=== PATIENT | male | born 1955 | race Caucasian/White ===

== ENCOUNTER 2024-09-18 17:17 | Inpatient (IN) | payer MEDICARE, OTHER ==
[~2024-09-18] VITALS: Ht 170.2 cm; Wt 67.5 kg
[2024-09-18] MEDS ORDERED: 0.9% SODIUM CHLORIDE 10 ML SYRINGE IVP PRN (18:30)
[2024-09-18] MEDS: SODIUM CHLORIDE 0.9% 1,400 ML IV ONE (19:41)
[2024-09-18] MEDS: CefTRIAXone 1 GM/DEXTROSE 50 ML IV ONE (19:41)
[2024-09-18] MEDS: ACETAMINOPHEN 650 MG/ISO-OSM 65 ML IV ONE (19:42)
[2024-09-18] MEDS ORDERED: NOREPINEPHRINE 8 MG/0.9 % NACL 250 ML IV PRN (19:45)
[2024-09-18 19:49] LABS: APPEARANCE,URINE TURBID (CLEAR); BILIRUBIN,URINE NEGATIVE (NEGATIVE); COLOR,URINE ORANGE (YELLOW); GLUCOSE, URINE (UA) NEGATIVE (NEGATIVE); KETONES,URINE NEGATIVE (NEGATIVE); LEUKOCYTE ESTERASE ,URINE LARGE (NEGATIVE); NITRATE,URINE POSITIVE (NEGATIVE); OCCULT BLOOD,URINE LARGE (NEGATIVE); PROTEIN,URINE 100-200,SEE CONFIRM mg/dL (NEGATIVE); SPECIFIC GRAVITIY, URINE 1.019 (1.003-1.030); UROBILINOGEN,URINE <=1.0 mg/dL (<=1.0)
[2024-09-18 20:00] LABS: BACTERIA,URINE Moderate /HPF (None Seen); WBC,URINE Full Field /HPF (0-5)
[2024-09-18 20:06] LABS: SULFOSALICYLIC ACID,URINE 1+ (Negative)
[2024-09-18 20:26] LABS: BASOPHILS % (AUTO) 0.4 % (0.0-2.0); EOSINOPHILS % (AUTO) 1.3 % (1.0-6.0); HEMATOCRIT 23.6 % (41-53); HEMOGLOBIN 7.4 g/dL (13.5-17.5); LYMPHOCYTES # (AUTO) 0.4 K/uL (1.0-4.8); LYMPHOCYTES % (AUTO) 6.1 % (22.0-44.0); MEAN CORPUSCULAR HEMOGLOBIN 24.2 pg (26.0-34.0); MEAN CORPUSCULAR HGB CONC 31.2 G/dL (31.0-37.0); MEAN CORPUSCULAR VOLUME 78 fL (80-100); MONOCYTES # (AUTO) 0.3 K/uL (0.1-1.0); MONOCYTES % (AUTO) 5.6 % (2.0-9.0); NEUTROPHILS # (AUTO) 5.1 K/uL (1.8-7.7); PLATELET COUNT (AUTO) 406 K/uL (150-450); RED BLOOD CELL COUNT(AUTO) 3.03 MIL/uL (4.50-5.90); RED CELL DISTRIBUTION WIDTH 20.5 % (11.5-14.5); WHITE BLOOD COUNT (AUTO) 5.9 K/uL (4.5-11.0)
[2024-09-18 20:30] LABS: NEUTROPHILS % (AUTO) 86.6 % (40.0-70.0)
[2024-09-18 20:31] LABS: PROTHROMBIN TIME 11.1 SEC (9.4-11.6)
[2024-09-18 20:36] LABS: B-TYPE NATRIURETIC PEPTIDE 163 pg/mL (0-100)
[2024-09-18 20:37] LABS: ANION GAP 6 mmol/L (8-16); CARBON DIOXIDE 29 mmol/L (22-29); CHLORIDE 106 mmol/L (98-107); CREATININE 1.44 mg/dL (0.60-1.30); GLOMERULAR FILTR. RATE CALC 49 mL/min (>60); GLUCOSE,RANDOM 124 mg/dL (70-110); SODIUM SERUM 141 mmol/L (136-145); TROPONIN I-HIGH SENSITIVITY 50 ng/L (<76); UREA NITROGEN, BLOOD 29 mg/dL (7-18)
[2024-09-18 20:39] LABS: POTASSIUM 2.5 mmol/L (3.5-5.1)
[2024-09-18 20:53] LABS: RBC MORPHOLOGY COMMENT ABNORMAL RBC MORPH
[2024-09-18] MEDS: POTASSIUM CHL 10 MEQ/WATER 50 ML IV SCH (21:48)
[2024-09-19] VITALS (7 sets, daily range): BP systolic 98–125; BP diastolic 56–77; PULSE 71–84; RESP 11–17; TEMP 98.5–100.2; O2SAT 100
[2024-09-19] MEDS ORDERED: SODIUM CHLORIDE 0.9% 500 ML IV ONE (01:18)
[2024-09-19] MEDS: POTASSIUM CHL 10 MEQ/WATER 50 ML IV SCH ×3 (01:20→22:28)
[2024-09-19 07:39] LABS: BASOPHILS % (AUTO) 0.2 % (0.0-2.0); EOSINOPHILS % (AUTO) 5.1 % (1.0-6.0); HEMATOCRIT 22.1 % (41-53); LYMPHOCYTES # (AUTO) 0.3 K/uL (1.0-4.8); MEAN CORPUSCULAR HEMOGLOBIN 24.4 pg (26.0-34.0); MEAN CORPUSCULAR HGB CONC 31.5 G/dL (31.0-37.0); MEAN CORPUSCULAR VOLUME 78 fL (80-100); MONOCYTES # (AUTO) 0.3 K/uL (0.1-1.0); NEUTROPHILS # (AUTO) 5.7 K/uL (1.8-7.7); PLATELET COUNT (AUTO) 410 K/uL (150-450); RED BLOOD CELL COUNT(AUTO) 2.85 MIL/uL (4.50-5.90); RED CELL DISTRIBUTION WIDTH 20.6 % (11.5-14.5); WHITE BLOOD COUNT (AUTO) 6.7 K/uL (4.5-11.0)
[2024-09-19 07:45] LABS: ANION GAP 8 mmol/L (8-16); CARBON DIOXIDE 25 mmol/L (22-29); CHLORIDE 110 mmol/L (98-107); CREATININE 1.18 mg/dL (0.60-1.30); GLOMERULAR FILTR. RATE CALC > 60 mL/min (>60); GLUCOSE,RANDOM 116 mg/dL (70-110); POTASSIUM 3.3 mmol/L (3.5-5.1); SODIUM SERUM 142 mmol/L (136-145); UREA NITROGEN, BLOOD 27 mg/dL (7-18)
[2024-09-19 08:04] LABS: NEUTROPHILS % (AUTO) 85.7 % (40.0-70.0)
[2024-09-19 09:24] LABS: RBC MORPHOLOGY COMMENT ABNORMAL RBC MORPH
[2024-09-19] MEDS: ACETAMINOPHEN 650 MG RECTAL SUPPOSITORY PR PRN (12:34)
[2024-09-19] MEDS ORDERED: ACET-2247 PO (12:35)
[2024-09-19] MEDS ORDERED: BISA10SU11 PR (12:35)
[2024-09-19] MEDS ORDERED: ATOR40TA28 PO (12:35)
[2024-09-19] MEDS ORDERED: OXYC5 PO (12:35)
[2024-09-19] MEDS ORDERED: MULT-248 PO (12:35)
[2024-09-19] MEDS ORDERED: OXYB5TAB20 PO (12:35)
[2024-09-19] MEDS ORDERED: CYAN100T45 PO (12:35)
[2024-09-19] MEDS ORDERED: LOSA-382 PO (12:35)
[2024-09-19] MEDS ORDERED: MAGN-169 PO (12:35)
[2024-09-19] MEDS: POTASSIUM CHL 10 MEQ/WATER 50 ML IV PRN ×2 (12:35→21:27)
[2024-09-19] MEDS ORDERED: MELA5TAB21 PO (12:35)
[2024-09-19] MEDS ORDERED: PANT-31 PO (12:35)
[2024-09-19] MEDS ORDERED: MINE133E26 PR (12:35)
[2024-09-19] MEDS ORDERED: IPRA4AER IH (12:35)
[2024-09-19] MEDS ORDERED: ZOLPIDEM TARTRATE 5 MG TABLET PO PRN (19:15)
[2024-09-19] MEDS ORDERED: IPRATROPIUM BROMIDE 0.5 MG/2.5 ML NEB SOLUTION NEB PRN (19:15)
[2024-09-19] MEDS ORDERED: MORPHINE SULFATE 2 MG/ML SYRINGE IVP PRN (19:15)
[2024-09-19] MEDS ORDERED: MAGNESIUM HYDROXIDE SUSPENSION 30 ML UDCUP PO PRN (19:15)
[2024-09-19] MEDS ORDERED: ONDANSETRON HCL 4 MG/2 ML VIAL IVP PRN (19:15)
[2024-09-19] MEDS ORDERED: HYDROCODONE/ACETAMINOPHEN 5-325 MG TABLET PO PRN (19:15)
[2024-09-19] MEDS ORDERED: BISACODYL 10 MG RECTAL RECTAL SUPPOSITORY PR PRN (19:15)
[2024-09-19] MEDS ORDERED: DEXTROSE 5%-0.9% SODIUM CHL 1,000 ML IV SCH (19:30)
[2024-09-19] MEDS: *CLINICAL-MEROPENEM DOSING CLINICAL ONE (19:50)
[2024-09-19] MEDS ORDERED: NOREPINEPHRINE 8 MG/0.9 % NACL 250 ML IV PRN (20:00)
[2024-09-19] MEDS: CefTRIAXone SODIUM 2 GM in DEXTROSE 5%-WATER 50 ML IV SCH (20:08)
[2024-09-19] MEDS: DEXTROSE 5%-0.45% SODIUM CHL 1,000 ML IV SCH (20:14)
[2024-09-19 20:30] LABS: BASOPHILS % (AUTO) 0.7 % (0.0-2.0); HEMATOCRIT 22.6 % (41-53); LYMPHOCYTES # (AUTO) 0.4 K/uL (1.0-4.8); MEAN CORPUSCULAR HEMOGLOBIN 24.2 pg (26.0-34.0); MEAN CORPUSCULAR HGB CONC 31.1 G/dL (31.0-37.0); MEAN CORPUSCULAR VOLUME 78 fL (80-100); MONOCYTES # (AUTO) 0.4 K/uL (0.1-1.0); MONOCYTES % (AUTO) 5.5 % (2.0-9.0); NEUTROPHILS # (AUTO) 5.1 K/uL (1.8-7.7); NEUTROPHILS % (AUTO) 79.8 % (40.0-70.0); PLATELET COUNT (AUTO) 423 K/uL (150-450); RED CELL DISTRIBUTION WIDTH 20.7 % (11.5-14.5); WHITE BLOOD COUNT (AUTO) 6.4 K/uL (4.5-11.0)
[2024-09-19 20:34] LABS: ANION GAP 12 mmol/L (8-16); CALCIUM, TOTAL 8.2 mg/dL (8.8-10.5); CARBON DIOXIDE 23 mmol/L (22-29); CHLORIDE 109 mmol/L (98-107); CREATININE 1.03 mg/dL (0.60-1.30); GLOMERULAR FILTR. RATE CALC > 60 mL/min (>60); GLUCOSE,RANDOM 91 mg/dL (70-110); POTASSIUM 3.2 mmol/L (3.5-5.1); SODIUM SERUM 144 mmol/L (136-145); UREA NITROGEN, BLOOD 28 mg/dL (7-18)
[2024-09-19 20:39] LABS: ALANINE AMINOTRANSFERASE 30 U/L (12-78); ALBUMIN 1.7 g/dL (3.4-5.0); ALKALINE PHOSPHATASE 148 U/L (46-116); ASPARTATE AMINOTRANSFERASE 31 U/L (15-37); BILIRUBIN,TOTAL 0.4 mg/dL (0.1-1.0); TOTAL PROTEIN, SERUM 5.7 g/dL (6.4-8.2)
[2024-09-19] MEDS: DOCUSATE SODIUM 100 MG CAPSULE PO SCH (21:00)
[2024-09-19] MEDS: MEROPENEM 1 GM in SODIUM CHLORIDE 0.9% 50 ML IV SCH (21:27)
[2024-09-19] MEDS: ETHYL ALCOHOL 62% ANTISEPTIC NASAL SANITIZER 0.6 ML AMPUL NASAL SCH (21:27)
[2024-09-20] VITALS (13 sets, daily range): BP systolic 118–138; BP diastolic 65–85; PULSE 69–82; RESP 11–18; TEMP 98.1–99.1; O2SAT 93–100
[2024-09-20 06:12] LABS: ANION GAP 8 mmol/L (8-16); CALCIUM, TOTAL 8.1 mg/dL (8.8-10.5); CARBON DIOXIDE 24 mmol/L (22-29); CHLORIDE 112 mmol/L (98-107); CREATININE 1.09 mg/dL (0.60-1.30); GLOMERULAR FILTR. RATE CALC > 60 mL/min (>60); GLUCOSE,RANDOM 119 mg/dL (70-110); POTASSIUM 3.3 mmol/L (3.5-5.1); SODIUM SERUM 144 mmol/L (136-145); UREA NITROGEN, BLOOD 25 mg/dL (7-18)
[2024-09-20 06:13] LABS: MAGNESIUM 2.3 mg/dL (1.80-2.40); PHOSPHORUS 2.2 mg/dL (2.5-4.9)
[2024-09-20 06:14] LABS: BASOPHILS % (AUTO) 0.5 % (0.0-2.0); EOSINOPHILS % (AUTO) 12.3 % (1.0-6.0); HEMATOCRIT 21.9 % (41-53); LYMPHOCYTES # (AUTO) 0.5 K/uL (1.0-4.8); LYMPHOCYTES % (AUTO) 6.9 % (22.0-44.0); MEAN CORPUSCULAR HEMOGLOBIN 24.6 pg (26.0-34.0); MEAN CORPUSCULAR HGB CONC 31.5 G/dL (31.0-37.0); MEAN CORPUSCULAR VOLUME 78 fL (80-100); MONOCYTES # (AUTO) 0.3 K/uL (0.1-1.0); MONOCYTES % (AUTO) 4.8 % (2.0-9.0); NEUTROPHILS # (AUTO) 5.1 K/uL (1.8-7.7); NEUTROPHILS % (AUTO) 75.5 % (40.0-70.0); PLATELET COUNT (AUTO) 434 K/uL (150-450); RED BLOOD CELL COUNT(AUTO) 2.81 MIL/uL (4.50-5.90); WHITE BLOOD COUNT (AUTO) 6.7 K/uL (4.5-11.0)
[2024-09-20 06:21] LABS: HEMOGLOBIN 6.9 g/dL (13.5-17.5)
[2024-09-20] MEDS ORDERED: SODIUM CHLORIDE 0.9% 250 ML IV ONE (06:48)
[2024-09-20] MEDS: PANTOPRAZOLE SODIUM 40 MG/VIAL IVP SCH (08:37)
[2024-09-20] MEDS ORDERED: SODIUM CHLORIDE 0.9% 500 ML IV ONE (09:06)
[2024-09-20] MEDS: SODIUM PHOS,M-BASIC-D-BASIC 10 MEQ in DEXTROSE 5%-WATER 50 ML IV ONE (09:14)
[2024-09-20 13:26] LABS: HEMOGLOBIN 8.4 g/dL (13.5-17.5)
[2024-09-21] VITALS: BP 141/78; PULSE 80; PULSE 92; RESP 16; TEMP 98.6; O2SAT 100
[2024-09-21 04:00] VITALS: BP 137/90; PULSE 97; RESP 20; TEMP 98.8; O2SAT 100
[2024-09-21 06:09] LABS: BASOPHILS % (AUTO) 0.6 % (0.0-2.0); EOSINOPHILS % (AUTO) 12.6 % (1.0-6.0); HEMATOCRIT 26.4 % (41-53); HEMOGLOBIN 8.6 g/dL (13.5-17.5); LYMPHOCYTES # (AUTO) 0.3 K/uL (1.0-4.8); LYMPHOCYTES % (AUTO) 5.3 % (22.0-44.0); MEAN CORPUSCULAR HEMOGLOBIN 25.5 pg (26.0-34.0); MEAN CORPUSCULAR HGB CONC 32.5 G/dL (31.0-37.0); MEAN CORPUSCULAR VOLUME 79 fL (80-100); MONOCYTES # (AUTO) 0.4 K/uL (0.1-1.0); MONOCYTES % (AUTO) 5.5 % (2.0-9.0); PLATELET COUNT (AUTO) 387 K/uL (150-450); RED BLOOD CELL COUNT(AUTO) 3.36 MIL/uL (4.50-5.90); RED CELL DISTRIBUTION WIDTH 18.6 % (11.5-14.5); WHITE BLOOD COUNT (AUTO) 6.6 K/uL (4.5-11.0)
[2024-09-21 06:19] LABS: ANION GAP 7 mmol/L (8-16); CALCIUM, TOTAL 7.8 mg/dL (8.8-10.5); CARBON DIOXIDE 23 mmol/L (22-29); CHLORIDE 113 mmol/L (98-107); CREATININE 1.02 mg/dL (0.60-1.30); GLOMERULAR FILTR. RATE CALC > 60 mL/min (>60); GLUCOSE,RANDOM 113 mg/dL (70-110); POTASSIUM 3.4 mmol/L (3.5-5.1); SODIUM SERUM 143 mmol/L (136-145); UREA NITROGEN, BLOOD 17 mg/dL (7-18)
[2024-09-21 06:25] LABS: MAGNESIUM 2.2 mg/dL (1.80-2.40); PHOSPHORUS 1.7 mg/dL (2.5-4.9)
[2024-09-21 08:00] VITALS: BP 131/90; PULSE 99; RESP 16; TEMP 99.1; O2SAT 100
[2024-09-21] MEDS: POTASSIUM PHOS,M-BASIC-D-BASIC 10 MEQ in DEXTROSE 5%-WATER 100 ML IV ONE (10:38)
[2024-09-21 12:00] VITALS: BP 119/78; PULSE 79; RESP 15; TEMP 99.2; O2SAT 100
[2024-09-21 16:00] VITALS: BP 116/78; PULSE 80; RESP 11; TEMP 99; O2SAT 100
[2024-09-21 16:04] LABS: PHOSPHORUS 2.3 mg/dL (2.5-4.9); POTASSIUM 3.8 mmol/L (3.5-5.1)
[2024-09-21] MEDS ORDERED: SODIUM CHLORIDE 0.9% 250 ML IV ONE (18:17)
[2024-09-21 20:00] VITALS: BP 132/79; PULSE 74; RESP 16; TEMP 100.5; O2SAT 100
[2024-09-21] MEDS: CHLORHEXIDINE GLUCONATE 2% TOWELETTE [2'S/6'S] TP SCH (22:34)
[2024-09-22] VITALS: BP 140/77; PULSE 79; RESP 12; TEMP 97.6; O2SAT 100
[2024-09-22] MEDS: ACETAMINOPHEN 325 MG TABLET PO PRN (02:45)
[2024-09-22 04:00] VITALS: BP 110/61; PULSE 85; RESP 12; TEMP 97.3; O2SAT 100
[2024-09-22 06:11] LABS: HEMATOCRIT 25.3 % (41-53); HEMOGLOBIN 8.2 g/dL (13.5-17.5); MEAN CORPUSCULAR HEMOGLOBIN 25.6 pg (26.0-34.0); MEAN CORPUSCULAR HGB CONC 32.5 G/dL (31.0-37.0); MEAN CORPUSCULAR VOLUME 79 fL (80-100); PLATELET COUNT (AUTO) 339 K/uL (150-450); RED BLOOD CELL COUNT(AUTO) 3.21 MIL/uL (4.50-5.90); RED CELL DISTRIBUTION WIDTH 19.1 % (11.5-14.5)
[2024-09-22 06:26] LABS: ANION GAP 7 mmol/L (8-16); CALCIUM, TOTAL 7.8 mg/dL (8.8-10.5); CARBON DIOXIDE 24 mmol/L (22-29); CHLORIDE 108 mmol/L (98-107); CREATININE 0.99 mg/dL (0.60-1.30); GLOMERULAR FILTR. RATE CALC > 60 mL/min (>60); GLUCOSE,RANDOM 103 mg/dL (70-110); POTASSIUM 3.6 mmol/L (3.5-5.1); SODIUM SERUM 139 mmol/L (136-145); UREA NITROGEN, BLOOD 15 mg/dL (7-18)
[2024-09-22 08:00] VITALS: BP 133/86; PULSE 98; RESP 15; TEMP 100.9; O2SAT 100
[2024-09-22] MEDS: THIAMINE 100 MG TABLET PO SCH (08:25)
[2024-09-22] MEDS: MULTIVITAMINS WITH MINERALS, THERAPEUTIC TABLET PO SCH (08:25)
[2024-09-22] MEDS: ASPIRIN 81 MG CHEWABLE TABLET PO SCH (08:25)
[2024-09-22] MEDS: ATORVASTATIN CALCIUM 40 MG TABLET PO SCH (08:25)
[2024-09-22 08:43] LABS: BAND NEUTROPHILS % (MANUAL) 6 % (0-5); EOSINOPHILS % (MANUAL) 1 % (1-6); LYMPHOCYTES % (MANUAL) 14 % (22-44); RBC MORPHOLOGY COMMENT NORMAL RBC MORPH; SEGMENTED NEUTROPHILS % 79 % (40-70); TOTAL CELLS COUNTED 100
[2024-09-22 09:42] LABS: CHOL/HDL RATIO 3.9 (4.2-7.3)
[2024-09-22] MEDS: POTASSIUM PHOS,M-BASIC-D-BASIC 20 MEQ in DEXTROSE 5%-WATER 100 ML IV ONE (10:36)
[2024-09-22 12:00] VITALS: BP 94/67; PULSE 100; PULSE 90; RESP 13; TEMP 98; O2SAT 100
[2024-09-22 16:00] VITALS: BP 120/76; PULSE 91; RESP 13; TEMP 98.1; O2SAT 100
[2024-09-22 20:00] VITALS: BP 121/87; PULSE 86; RESP 15; TEMP 100.6; O2SAT 100
[2024-09-23] VITALS: BP 129/79; PULSE 68; PULSE 81; RESP 16; TEMP 98.6; O2SAT 97
[2024-09-23 04:00] VITALS: BP 125/81; PULSE 66; PULSE 77; RESP 15; TEMP 99.4; O2SAT 96
[2024-09-23 06:44] LABS: HEMATOCRIT 28.4 % (41-53); HEMOGLOBIN 9.1 g/dL (13.5-17.5); MEAN CORPUSCULAR HEMOGLOBIN 25.4 pg (26.0-34.0); MEAN CORPUSCULAR HGB CONC 32.1 G/dL (31.0-37.0); MEAN CORPUSCULAR VOLUME 79 fL (80-100); PLATELET COUNT (AUTO) 297 K/uL (150-450); RED BLOOD CELL COUNT(AUTO) 3.59 MIL/uL (4.50-5.90); RED CELL DISTRIBUTION WIDTH 19.8 % (11.5-14.5); WHITE BLOOD COUNT (AUTO) 5.3 K/uL (4.5-11.0)
[2024-09-23 06:57] LABS: ANION GAP 6 mmol/L (8-16); CALCIUM, TOTAL 7.5 mg/dL (8.8-10.5); CARBON DIOXIDE 25 mmol/L (22-29); CHLORIDE 103 mmol/L (98-107); CREATININE 0.96 mg/dL (0.60-1.30); GLOMERULAR FILTR. RATE CALC > 60 mL/min (>60); GLUCOSE,RANDOM 98 mg/dL (70-110); SODIUM SERUM 134 mmol/L (136-145); UREA NITROGEN, BLOOD 13 mg/dL (7-18)
[2024-09-23 06:59] LABS: MAGNESIUM 1.8 mg/dL (1.80-2.40); PHOSPHORUS 2.4 mg/dL (2.5-4.9)
[2024-09-23 07:46] LABS: BAND NEUTROPHILS % (MANUAL) 5 % (0-5); EOSINOPHILS % (MANUAL) 3 % (1-6); LYMPHOCYTES % (MANUAL) 12 % (22-44); MONOCYTES % (MANUAL) 1 % (2-9); SEGMENTED NEUTROPHILS % 79 % (40-70); TOTAL CELLS COUNTED 100
[2024-09-23 08:00] VITALS: BP 125/68; PULSE 72; PULSE 89; RESP 16; TEMP 98.2; O2SAT 100
[2024-09-23] MEDS: SODIUM,POTASSIUM PHOSPHATES POWDER PACKET PO SCH (11:09)
[2024-09-23 12:00] VITALS: BP 118/73; PULSE 63; PULSE 65; RESP 17; TEMP 99.5; O2SAT 100
[2024-09-23 16:00] VITALS: BP 125/79; PULSE 72; PULSE 74; RESP 15; TEMP 99; O2SAT 100
[2024-09-23 20:00] VITALS: BP 115/68; PULSE 67; RESP 11; TEMP 100; O2SAT 100
[2024-09-23] MEDS ORDERED: SODIUM CHLORIDE 0.9% 250 ML IV ONE (21:15)
[2024-09-24] VITALS: BP 104/72; PULSE 82; RESP 13; TEMP 98.1; O2SAT 100
[2024-09-24 04:00] VITALS: BP 140/73; PULSE 84; RESP 12; TEMP 98; O2SAT 100
[2024-09-24 06:05] LABS: HEMOGLOBIN 8.9 g/dL (13.5-17.5); MEAN CORPUSCULAR HEMOGLOBIN 25.1 pg (26.0-34.0); MEAN CORPUSCULAR HGB CONC 31.9 G/dL (31.0-37.0); MEAN CORPUSCULAR VOLUME 79 fL (80-100); PLATELET COUNT (AUTO) 356 K/uL (150-450); RED BLOOD CELL COUNT(AUTO) 3.56 MIL/uL (4.50-5.90); RED CELL DISTRIBUTION WIDTH 19.6 % (11.5-14.5); WHITE BLOOD COUNT (AUTO) 7.2 K/uL (4.5-11.0)
[2024-09-24 06:24] LABS: ANION GAP 6 mmol/L (8-16); CALCIUM, TOTAL 7.4 mg/dL (8.8-10.5); CARBON DIOXIDE 25 mmol/L (22-29); CHLORIDE 100 mmol/L (98-107); CREATININE 0.87 mg/dL (0.60-1.30); GLOMERULAR FILTR. RATE CALC > 60 mL/min (>60); GLUCOSE,RANDOM 111 mg/dL (70-110); POTASSIUM 3.7 mmol/L (3.5-5.1); SODIUM SERUM 131 mmol/L (136-145); UREA NITROGEN, BLOOD 13 mg/dL (7-18)
[2024-09-24 06:32] LABS: MAGNESIUM 1.9 mg/dL (1.80-2.40); PHOSPHORUS 2.6 mg/dL (2.5-4.9)
[2024-09-24 07:29] LABS: BAND NEUTROPHILS % (MANUAL) 2 % (0-5); EOSINOPHILS % (MANUAL) 10 % (1-6); LYMPHOCYTES % (MANUAL) 6 % (22-44); MONOCYTES % (MANUAL) 5 % (2-9); SEGMENTED NEUTROPHILS % 77 % (40-70); TOTAL CELLS COUNTED 100
[2024-09-24 08:00] VITALS: BP 139/87; PULSE 83; PULSE 86; RESP 12; TEMP 98; O2SAT 100
[2024-09-24 12:00] VITALS: BP 120/75; PULSE 79; PULSE 82; RESP 13; TEMP 99.3; O2SAT 100
[2024-09-24 16:00] VITALS: PULSE 83
[2024-09-24 20:00] VITALS: BP 129/86; PULSE 91; RESP 15; TEMP 98.8; O2SAT 99
[2024-09-24] MEDS ORDERED: SODIUM CHLORIDE 0.9% 250 ML IV ONE (21:09)
[2024-09-25 00:57] VITALS: BP 117/82; PULSE 94; RESP 16; TEMP 99; O2SAT 98
[2024-09-25 04:38] VITALS: BP 147/82; PULSE 91; RESP 16; TEMP 101.3; O2SAT 98
[2024-09-25 07:17] LABS: BASOPHILS % (AUTO) 0.5 % (0.0-2.0); EOSINOPHILS % (AUTO) 10.5 % (1.0-6.0); HEMATOCRIT 27.7 % (41-53); LYMPHOCYTES # (AUTO) 0.4 K/uL (1.0-4.8); LYMPHOCYTES % (AUTO) 5.6 % (22.0-44.0); MEAN CORPUSCULAR HEMOGLOBIN 25.3 pg (26.0-34.0); MEAN CORPUSCULAR HGB CONC 32.4 G/dL (31.0-37.0); MEAN CORPUSCULAR VOLUME 78 fL (80-100); MONOCYTES # (AUTO) 0.5 K/uL (0.1-1.0); MONOCYTES % (AUTO) 7.1 % (2.0-9.0); NEUTROPHILS # (AUTO) 5.9 K/uL (1.8-7.7); NEUTROPHILS % (AUTO) 76.3 % (40.0-70.0); PLATELET COUNT (AUTO) 412 K/uL (150-450); RED BLOOD CELL COUNT(AUTO) 3.55 MIL/uL (4.50-5.90); RED CELL DISTRIBUTION WIDTH 20.3 % (11.5-14.5); WHITE BLOOD COUNT (AUTO) 7.7 K/uL (4.5-11.0)
[2024-09-25 07:41] LABS: ANION GAP 8 mmol/L (8-16); CALCIUM, TOTAL 7.5 mg/dL (8.8-10.5); CARBON DIOXIDE 24 mmol/L (22-29); CHLORIDE 96 mmol/L (98-107); CREATININE 1.07 mg/dL (0.60-1.30); GLOMERULAR FILTR. RATE CALC > 60 mL/min (>60); GLUCOSE,RANDOM 107 mg/dL (70-110); POTASSIUM 4.1 mmol/L (3.5-5.1); SODIUM SERUM 128 mmol/L (136-145); UREA NITROGEN, BLOOD 17 mg/dL (7-18)
[2024-09-25 09:21] VITALS: BP 143/85; PULSE 81; RESP 17; TEMP 98.8; O2SAT 97
[2024-09-25 13:11] VITALS: BP 138/80; PULSE 82; RESP 0; TEMP 99.1; O2SAT 98
[2024-09-25 16:23] VITALS: BP 133/76; PULSE 93; RESP 16; TEMP 100.6; O2SAT 100
[2024-09-25] MEDS: SODIUM CHLORIDE 1 GM TABLET NG SCH (16:57)
[2024-09-25 16:58] LABS: CANDIDA AURIS PCR,SURVEILLANCE Not Detected C(t) (Not Detectd)
[2024-09-25 18:32] LABS: BASOPHILS % (AUTO) 0.4 % (0.0-2.0); EOSINOPHILS % (AUTO) 12.8 % (1.0-6.0); HEMATOCRIT 28.2 % (41-53); HEMOGLOBIN 9.1 g/dL (13.5-17.5); LYMPHOCYTES # (AUTO) 0.4 K/uL (1.0-4.8); LYMPHOCYTES % (AUTO) 5.1 % (22.0-44.0); MEAN CORPUSCULAR HGB CONC 32.3 G/dL (31.0-37.0); MEAN CORPUSCULAR VOLUME 78 fL (80-100); MONOCYTES # (AUTO) 0.5 K/uL (0.1-1.0); MONOCYTES % (AUTO) 6.1 % (2.0-9.0); NEUTROPHILS # (AUTO) 6.2 K/uL (1.8-7.7); NEUTROPHILS % (AUTO) 75.6 % (40.0-70.0); PLATELET COUNT (AUTO) 400 K/uL (150-450); RED BLOOD CELL COUNT(AUTO) 3.64 MIL/uL (4.50-5.90); RED CELL DISTRIBUTION WIDTH 20.6 % (11.5-14.5); WHITE BLOOD COUNT (AUTO) 8.2 K/uL (4.5-11.0)
[2024-09-25 20:19] VITALS: BP 100/73; PULSE 87; RESP 17; TEMP 99.1; O2SAT 99
[2024-09-25] MEDS ORDERED: SODIUM CHLORIDE 0.9% 500 ML IV ONE (20:49)
[2024-09-26 00:31] VITALS: BP 143/92; PULSE 90; RESP 19; TEMP 99.9; O2SAT 96
[2024-09-26 03:52] VITALS: BP 118/74; PULSE 84; RESP 19; TEMP 99.7; O2SAT 98
[2024-09-26 07:21] LABS: BASOPHILS % (AUTO) 0.5 % (0.0-2.0); HEMATOCRIT 31.6 % (41-53); HEMOGLOBIN 10.2 g/dL (13.5-17.5); LYMPHOCYTES # (AUTO) 0.8 K/uL (1.0-4.8); LYMPHOCYTES % (AUTO) 9.7 % (22.0-44.0); MEAN CORPUSCULAR HGB CONC 32.2 G/dL (31.0-37.0); MEAN CORPUSCULAR VOLUME 78 fL (80-100); MONOCYTES # (AUTO) 0.7 K/uL (0.1-1.0); MONOCYTES % (AUTO) 8.2 % (2.0-9.0); NEUTROPHILS # (AUTO) 5.9 K/uL (1.8-7.7); NEUTROPHILS % (AUTO) 69.6 % (40.0-70.0); PLATELET COUNT (AUTO) 435 K/uL (150-450); RED BLOOD CELL COUNT(AUTO) 4.06 MIL/uL (4.50-5.90); RED CELL DISTRIBUTION WIDTH 20.4 % (11.5-14.5); WHITE BLOOD COUNT (AUTO) 8.4 K/uL (4.5-11.0)
[2024-09-26 07:31] LABS: ANION GAP 6 mmol/L (8-16); CALCIUM, TOTAL 7.7 mg/dL (8.8-10.5); CARBON DIOXIDE 27 mmol/L (22-29); CHLORIDE 95 mmol/L (98-107); CREATININE 1.09 mg/dL (0.60-1.30); GLOMERULAR FILTR. RATE CALC > 60 mL/min (>60); GLUCOSE,RANDOM 111 mg/dL (70-110); POTASSIUM 4.8 mmol/L (3.5-5.1); SODIUM SERUM 128 mmol/L (136-145); UREA NITROGEN, BLOOD 23 mg/dL (7-18)
[2024-09-26 08:01] VITALS: BP 126/84; PULSE 94; RESP 19; TEMP 98.9; O2SAT 98
[2024-09-26 08:56] LABS: RBC MORPHOLOGY COMMENT ABNORMAL RBC MORPH
[2024-09-26 11:58] VITALS: BP 103/73; PULSE 77; RESP 17; TEMP 98.8; O2SAT 99
[2024-09-26 16:11] VITALS: BP 114/73; PULSE 79; RESP 19; TEMP 99; O2SAT 98
[2024-09-26 20:34] VITALS: BP 121/74; PULSE 92; RESP 18; TEMP 100; O2SAT 94
[2024-09-27 00:27] VITALS: BP 121/71; PULSE 91; RESP 17; TEMP 99; O2SAT 94
[2024-09-27 04:53] VITALS: BP 140/69; PULSE 92; RESP 18; TEMP 97.7; O2SAT 98
[2024-09-27 08:19] VITALS: BP 134/74; PULSE 75; RESP 19; TEMP 97.7; O2SAT 99
[2024-09-27 11:16] VITALS: BP 127/79; PULSE 88; RESP 18; TEMP 98; O2SAT 93
[2024-09-27] MEDS: DEXTROSE 5%-0.45% SODIUM CHL 1,000 ML IV ONE (12:24)
[2024-09-27 16:00] VITALS: BP 123/67; PULSE 79; RESP 19; TEMP 98.1; O2SAT 92
[2024-09-27 20:00] VITALS: BP 145/85; PULSE 89; RESP 16; TEMP 98.2; O2SAT 100
[2024-09-28] VITALS (7 sets, daily range): BP systolic 116–147; BP diastolic 69–90; PULSE 71–92; RESP 18; TEMP 98–98.5; O2SAT 97–100
[2024-09-28 06:42] LABS: ANION GAP 6 mmol/L (8-16); CALCIUM, TOTAL 7.7 mg/dL (8.8-10.5); CARBON DIOXIDE 27 mmol/L (22-29); CHLORIDE 97 mmol/L (98-107); CREATININE 0.99 mg/dL (0.60-1.30); GLOMERULAR FILTR. RATE CALC > 60 mL/min (>60); GLUCOSE,RANDOM 106 mg/dL (70-110); POTASSIUM 3.8 mmol/L (3.5-5.1); SODIUM SERUM 130 mmol/L (136-145); UREA NITROGEN, BLOOD 24 mg/dL (7-18)
[2024-09-28] MEDS ORDERED: IOHEXOL 300 MG/ML 50 ML VIAL ONE (10:14)
[2024-09-28] MEDS ORDERED: LIDOCAINE/PF 1% 30 ML VIAL ONE (10:14)
[2024-09-28] MEDS ORDERED: SODIUM BICARBONATE 50 MEQ/50 ML VIAL ONE (10:14)
[2024-09-28] MEDS ORDERED: FentaNYL CITRATE PF 100 MCG/2 ML VIAL ONE (10:26)
[2024-09-28] MEDS ORDERED: MIDAZOLAM HCL 2 MG/2 ML VIAL ONE (10:27)
[2024-09-28] MEDS: SODIUM CHLORIDE 0.9% 500 ML IV ONE (11:25)
[2024-09-28] MEDS: IOHEXOL 300 MG/ML 50 ML VIAL IVP ONE (11:25)
[2024-09-28] MEDS: GLUCAGON,HUMAN RECOMBINANT 1 MG VIAL IVP ONE (11:25)
[2024-09-28] MEDS: FentaNYL CITRATE PF 100 MCG/2 ML VIAL IVP ONE (11:26)
[2024-09-28] MEDS: MIDAZOLAM HCL 2 MG/2 ML VIAL IVP ONE (11:26)
[2024-09-28] MEDS: LIDOCAINE 1% 30 ML/SOD BICARB 8.4% 4 ML SQ ONE (11:27)
[2024-09-28] MEDS: SODIUM CHLORIDE 0.9% 1,000 ML IV SCH (13:57)
[2024-09-28] MEDS: SODIUM CHLORIDE 1 GM TABLET PO SCH (16:00)
[2024-09-28] MEDS ORDERED: SODIUM CHLORIDE 3% 15 ML NEB SOLUTION NEB ONE (20:13)
[2024-09-28] MEDS: DOCUSATE SODIUM 100 MG/10 ML LIQUID UDCUP GT SCH (21:00)
[2024-09-29] VITALS (7 sets, daily range): BP systolic 131–145; BP diastolic 75–81; PULSE 67–88; RESP 17–18; TEMP 97.5–99.3; O2SAT 98–100
[2024-09-29] MEDS ORDERED: SODIUM CHLORIDE 3% 15 ML NEB SOLUTION NEB ONE ×3 (03:48→23:58)
[2024-09-29 06:58] LABS: BASOPHILS % (AUTO) 0.7 % (0.0-2.0); HEMATOCRIT 34.7 % (41-53); LYMPHOCYTES # (AUTO) 0.5 K/uL (1.0-4.8); LYMPHOCYTES % (AUTO) 9.3 % (22.0-44.0); MEAN CORPUSCULAR HGB CONC 31.7 G/dL (31.0-37.0); MEAN CORPUSCULAR VOLUME 79 fL (80-100); MONOCYTES # (AUTO) 0.3 K/uL (0.1-1.0); MONOCYTES % (AUTO) 6.1 % (2.0-9.0); NEUTROPHILS # (AUTO) 3.7 K/uL (1.8-7.7); NEUTROPHILS % (AUTO) 65.2 % (40.0-70.0); PLATELET COUNT (AUTO) 426 K/uL (150-450); RED CELL DISTRIBUTION WIDTH 20.4 % (11.5-14.5); WHITE BLOOD COUNT (AUTO) 5.7 K/uL (4.5-11.0)
[2024-09-29 07:04] LABS: EOSINOPHILS % (AUTO) 18.7 % (1.0-6.0)
[2024-09-29 07:17] LABS: ANION GAP 9 mmol/L (8-16); CALCIUM, TOTAL 7.8 mg/dL (8.8-10.5); CARBON DIOXIDE 25 mmol/L (22-29); CHLORIDE 98 mmol/L (98-107); CREATININE 0.89 mg/dL (0.60-1.30); GLOMERULAR FILTR. RATE CALC > 60 mL/min (>60); GLUCOSE,RANDOM 80 mg/dL (70-110); POTASSIUM 3.6 mmol/L (3.5-5.1); SODIUM SERUM 132 mmol/L (136-145); UREA NITROGEN, BLOOD 25 mg/dL (7-18)
[2024-09-29] MEDS: THIAMINE 100 MG TABLET GT SCH (10:30)
[2024-09-29 15:07] LABS: ANTI-DNA DOUBLE STRANDED ABS 53 IU/mL (0-9)
[2024-09-30] VITALS (7 sets, daily range): BP systolic 111–164; BP diastolic 65–84; PULSE 62–89; RESP 17–19; TEMP 97.5–100.8; O2SAT 95–100
[2024-09-30 08:08] LABS: BASOPHILS % (AUTO) 0.6 % (0.0-2.0); HEMATOCRIT 26.4 % (41-53); HEMOGLOBIN 8.4 g/dL (13.5-17.5); LYMPHOCYTES # (AUTO) 0.5 K/uL (1.0-4.8); LYMPHOCYTES % (AUTO) 6.8 % (22.0-44.0); MEAN CORPUSCULAR HEMOGLOBIN 25.1 pg (26.0-34.0); MEAN CORPUSCULAR VOLUME 78 fL (80-100); MONOCYTES # (AUTO) 0.6 K/uL (0.1-1.0); PLATELET COUNT (AUTO) 564 K/uL (150-450); RED BLOOD CELL COUNT(AUTO) 3.36 MIL/uL (4.50-5.90); RED CELL DISTRIBUTION WIDTH 20.2 % (11.5-14.5); WHITE BLOOD COUNT (AUTO) 7.3 K/uL (4.5-11.0)
[2024-09-30 08:12] LABS: EOSINOPHILS % (AUTO) 15.6 % (1.0-6.0)
[2024-09-30 08:22] LABS: ANION GAP 8 mmol/L (8-16); CALCIUM, TOTAL 7.5 mg/dL (8.8-10.5); CARBON DIOXIDE 24 mmol/L (22-29); CHLORIDE 102 mmol/L (98-107); CREATININE 1.12 mg/dL (0.60-1.30); GLOMERULAR FILTR. RATE CALC > 60 mL/min (>60); GLUCOSE,RANDOM 106 mg/dL (70-110); POTASSIUM 3.8 mmol/L (3.5-5.1); SODIUM SERUM 134 mmol/L (136-145); UREA NITROGEN, BLOOD 25 mg/dL (7-18)
[2024-09-30 08:27] LABS: ALANINE AMINOTRANSFERASE 25 U/L (12-78); ALBUMIN 1.5 g/dL (3.4-5.0); ALKALINE PHOSPHATASE 222 U/L (46-116); ASPARTATE AMINOTRANSFERASE 38 U/L (15-37); BILIRUBIN,TOTAL 0.3 mg/dL (0.1-1.0); TOTAL PROTEIN, SERUM 5.1 g/dL (6.4-8.2)
[2024-09-30] MEDS: PANTOPRAZOLE SODIUM 40 MG/VIAL IVP SCH (09:35)
[2024-09-30 11:51] LABS: MTB PCR w/Rif. Resistance-SPUT NOT DETECTED (Not Detectd)
[2024-09-30 16:04] LABS: HEMATOCRIT 27.4 % (41-53); HEMOGLOBIN 8.6 g/dL (13.5-17.5); LYMPHOCYTES # (AUTO) 0.5 K/uL (1.0-4.8); LYMPHOCYTES % (AUTO) 6.3 % (22.0-44.0); MEAN CORPUSCULAR HGB CONC 31.4 G/dL (31.0-37.0); MEAN CORPUSCULAR VOLUME 80 fL (80-100); MONOCYTES # (AUTO) 0.5 K/uL (0.1-1.0); MONOCYTES % (AUTO) 6.3 % (2.0-9.0); NEUTROPHILS # (AUTO) 5.5 K/uL (1.8-7.7); NEUTROPHILS % (AUTO) 65.1 % (40.0-70.0); PLATELET COUNT (AUTO) 496 K/uL (150-450); RED BLOOD CELL COUNT(AUTO) 3.44 MIL/uL (4.50-5.90); RED CELL DISTRIBUTION WIDTH 20.1 % (11.5-14.5); WHITE BLOOD COUNT (AUTO) 8.5 K/uL (4.5-11.0)
[2024-09-30 16:05] LABS: EOSINOPHILS % (AUTO) 21.3 % (1.0-6.0)
[2024-09-30 19:06] LABS: QUANTIFERON+, Nil Value 0.05 IU/mL; QUANTIFERON+,Mitogen Value 2.17 IU/mL; QUANTIFERON+,TB1 Antigen Value 0.07 IU/mL; QUANTIFERON+,TB2 Antigen Value 0.09 IU/mL; QUANTIFERON, TB GOLD PLUS Negative (Negative)
[2024-09-30] MEDS ORDERED: SODIUM CHLORIDE 3% 15 ML NEB SOLUTION NEB ONE (20:15)
[2024-10-01] VITALS (7 sets, daily range): BP systolic 117–159; BP diastolic 58–73; PULSE 69–86; RESP 16–18; TEMP 98.2–100.2; O2SAT 96–100
[2024-10-01 06:10] LABS: GLUCOMETER DEV NAME(LOC) 5N.2C; GLUCOSE,POINT OF CARE 115 MG/DL (70-110)
[2024-10-01 06:48] LABS: BASOPHILS % (AUTO) 0.5 % (0.0-2.0); HEMOGLOBIN 8.1 g/dL (13.5-17.5); LYMPHOCYTES # (AUTO) 0.5 K/uL (1.0-4.8); MEAN CORPUSCULAR HEMOGLOBIN 25.1 pg (26.0-34.0); MEAN CORPUSCULAR HGB CONC 32.3 G/dL (31.0-37.0); MEAN CORPUSCULAR VOLUME 78 fL (80-100); MONOCYTES # (AUTO) 0.6 K/uL (0.1-1.0); NEUTROPHILS # (AUTO) 6.3 K/uL (1.8-7.7); NEUTROPHILS % (AUTO) 64.1 % (40.0-70.0); PLATELET COUNT (AUTO) 602 K/uL (150-450); RED BLOOD CELL COUNT(AUTO) 3.21 MIL/uL (4.50-5.90); RED CELL DISTRIBUTION WIDTH 20.2 % (11.5-14.5); WHITE BLOOD COUNT (AUTO) 9.8 K/uL (4.5-11.0)
[2024-10-01 06:52] LABS: EOSINOPHILS % (AUTO) 24.4 % (1.0-6.0)
[2024-10-01 07:01] LABS: ANION GAP 8 mmol/L (8-16); CALCIUM, TOTAL 7.7 mg/dL (8.8-10.5); CARBON DIOXIDE 25 mmol/L (22-29); CHLORIDE 105 mmol/L (98-107); CREATININE 1.06 mg/dL (0.60-1.30); GLOMERULAR FILTR. RATE CALC > 60 mL/min (>60); GLUCOSE,RANDOM 114 mg/dL (70-110); SODIUM SERUM 138 mmol/L (136-145); UREA NITROGEN, BLOOD 30 mg/dL (7-18)
[2024-10-01 08:32] LABS: APPEARANCE,URINE TURBID (CLEAR); BILIRUBIN,URINE NEGATIVE (NEGATIVE); COLOR,URINE YELLOW (YELLOW); GLUCOSE, URINE (UA) NEGATIVE (NEGATIVE); KETONES,URINE NEGATIVE (NEGATIVE); LEUKOCYTE ESTERASE ,URINE LARGE (NEGATIVE); NITRATE,URINE NEGATIVE (NEGATIVE); OCCULT BLOOD,URINE LARGE (NEGATIVE); PH,URINE 5.5 (5.0-8.0); PROTEIN,URINE 30-70 mg/dL (NEGATIVE); SPECIFIC GRAVITIY, URINE 1.017 (1.003-1.030); UROBILINOGEN,URINE <=1.0 mg/dL (<=1.0)
[2024-10-01 08:50] LABS: BACTERIA,URINE Few /HPF (None Seen); RBC,URINE 51-100 /HPF (0-2); WBC,URINE 26-50 /HPF (0-5)
[2024-10-01 08:51] LABS: SQUAMOUS EPITHELIAL CELL,UR Few /LPF (None Seen); YEAST,URINE Few /HPF (None Seen)
[2024-10-02] VITALS: BP 147/71; PULSE 86; RESP 18; TEMP 99.5; O2SAT 96
[2024-10-02 04:00] VITALS: BP 139/83; PULSE 89; RESP 18; TEMP 101.8; O2SAT 95
[2024-10-02 06:37] LABS: BASOPHILS % (AUTO) 0.5 % (0.0-2.0); HEMATOCRIT 25.4 % (41-53); HEMOGLOBIN 8.5 g/dL (13.5-17.5); LYMPHOCYTES # (AUTO) 0.8 K/uL (1.0-4.8); LYMPHOCYTES % (AUTO) 7.8 % (22.0-44.0); MEAN CORPUSCULAR HEMOGLOBIN 25.6 pg (26.0-34.0); MEAN CORPUSCULAR HGB CONC 33.3 G/dL (31.0-37.0); MEAN CORPUSCULAR VOLUME 77 fL (80-100); MONOCYTES # (AUTO) 0.7 K/uL (0.1-1.0); MONOCYTES % (AUTO) 7.1 % (2.0-9.0); NEUTROPHILS # (AUTO) 6.9 K/uL (1.8-7.7); NEUTROPHILS % (AUTO) 65.9 % (40.0-70.0); PLATELET COUNT (AUTO) 662 K/uL (150-450); RED BLOOD CELL COUNT(AUTO) 3.31 MIL/uL (4.50-5.90); RED CELL DISTRIBUTION WIDTH 20.2 % (11.5-14.5); WHITE BLOOD COUNT (AUTO) 10.5 K/uL (4.5-11.0)
[2024-10-02 06:41] LABS: EOSINOPHILS % (AUTO) 18.7 % (1.0-6.0)
[2024-10-02 07:40] VITALS: BP 126/90; PULSE 85; RESP 19; TEMP 99.1; O2SAT 96
[2024-10-02] MEDS: *CLINICAL-MEROPENEM DOSING CLINICAL ONE (09:51)
[2024-10-02] MEDS: MEROPENEM 1 GM in SODIUM CHLORIDE 0.9% 50 ML IV SCH (10:37)
[2024-10-02 13:01] VITALS: BP 150/82; PULSE 83; RESP 18; TEMP 100; O2SAT 96
[2024-10-02 13:07] LABS: U HISTOPLASMA GALACTOMANNAN AG Negative (<0.2 ng/mL)
[2024-10-02 14:07] LABS: ANTI-PROTEINASE 3 (PR3) <0.2 units (0.0-0.9)
[2024-10-02 17:23] VITALS: BP 142/81; PULSE 94; RESP 18; TEMP 101.8; O2SAT 99
[2024-10-02 18:36] LABS: GLUCOMETER DEV NAME(LOC) 5N.2C; GLUCOSE,POINT OF CARE 133 MG/DL (70-110)
[2024-10-02 18:36] LABS: GLUCOMETER DEV NAME(LOC) 5N.2C; GLUCOSE,POINT OF CARE 144 MG/DL (70-110)
[2024-10-02 21:00] VITALS: BP 130/85; PULSE 73; RESP 18; TEMP 100; O2SAT 98
[2024-10-02 21:15] LABS: MTB PCR w/Rif. Resistance-SPUT NOT DETECTED (Not Detectd)
[2024-10-03] VITALS (11 sets, daily range): BP systolic 117–141; BP diastolic 64–83; PULSE 75–96; RESP 18–19; TEMP 97.6–100.9; O2SAT 78–100
[2024-10-03 03:35] LABS: GLUCOMETER DEV NAME(LOC) 5N.2C; GLUCOSE,POINT OF CARE 137 MG/DL (70-110)
[2024-10-03] MEDS ORDERED: 0.9% SODIUM CHLORIDE 15 ML NEB SOLUTION NEB ONE (05:05)
[2024-10-03] MEDS ORDERED: SODIUM CHLORIDE 3% 15 ML NEB SOLUTION NEB ONE ×2 (05:06→13:18)
[2024-10-03 08:16] LABS: GLUCOMETER DEV NAME(LOC) 5N.2C; GLUCOSE,POINT OF CARE 142 MG/DL (70-110)
[2024-10-03] MEDS: DAPTOmycin 500 MG in SODIUM CHLORIDE 0.9% 50 ML IV SCH (14:22)
[2024-10-03] MEDS: AMPICILLIN SODIUM 2 GM/NS 100 ML IV SCH (16:49)
[2024-10-03 20:01] LABS: GLUCOMETER DEV NAME(LOC) 5N.2C; GLUCOSE,POINT OF CARE 133 MG/DL (70-110)
[2024-10-03 22:37] LABS: MTB PCR w/Rif. Resistance-SPUT NOT DETECTED (Not Detectd)
[2024-10-03 23:08] LABS: INFLUENZA A-RTPCR,COMBO NEGATIVE (NEGATIVE); INFLUENZA B-RTPCR,COMBO NEGATIVE (NEGATIVE); RESPIRATORY SYNCYTIAL VRS-PCR NEGATIVE (NEGATIVE); SARS COVID19 RTPCR, COMBO NEGATIVE (NEGATIVE)
[2024-10-04] VITALS (7 sets, daily range): BP systolic 103–131; BP diastolic 66–88; PULSE 82–104; RESP 17–20; TEMP 97.2–102.9; O2SAT 92–100
[2024-10-04 06:25] LABS: GLUCOMETER DEV NAME(LOC) 5N.1D; GLUCOSE,POINT OF CARE 106 MG/DL (70-110)
[2024-10-04 07:00] LABS: GLUCOMETER DEV NAME(LOC) 5N.1D; GLUCOSE,POINT OF CARE 117 MG/DL (70-110)
[2024-10-04 10:28] LABS: BASOPHILS % (AUTO) 0.7 % (0.0-2.0); EOSINOPHILS % (AUTO) 9.4 % (1.0-6.0); HEMATOCRIT 24.9 % (41-53); HEMOGLOBIN 7.9 g/dL (13.5-17.5); LYMPHOCYTES # (AUTO) 0.6 K/uL (1.0-4.8); LYMPHOCYTES % (AUTO) 6.3 % (22.0-44.0); MEAN CORPUSCULAR HEMOGLOBIN 24.6 pg (26.0-34.0); MEAN CORPUSCULAR HGB CONC 31.9 G/dL (31.0-37.0); MEAN CORPUSCULAR VOLUME 77 fL (80-100); MONOCYTES # (AUTO) 0.8 K/uL (0.1-1.0); MONOCYTES % (AUTO) 9.4 % (2.0-9.0); NEUTROPHILS # (AUTO) 6.6 K/uL (1.8-7.7); NEUTROPHILS % (AUTO) 74.2 % (40.0-70.0); PLATELET COUNT (AUTO) 577 K/uL (150-450); RED BLOOD CELL COUNT(AUTO) 3.22 MIL/uL (4.50-5.90); RED CELL DISTRIBUTION WIDTH 20.7 % (11.5-14.5); WHITE BLOOD COUNT (AUTO) 8.9 K/uL (4.5-11.0)
[2024-10-04 10:41] LABS: ALANINE AMINOTRANSFERASE 27 U/L (12-78); ALBUMIN 1.3 g/dL (3.4-5.0); ALKALINE PHOSPHATASE 222 U/L (46-116); ANION GAP 4 mmol/L (8-16); ASPARTATE AMINOTRANSFERASE 43 U/L (15-37); BILIRUBIN,TOTAL 0.2 mg/dL (0.1-1.0); CALCIUM, TOTAL 7.5 mg/dL (8.8-10.5); CARBON DIOXIDE 30 mmol/L (22-29); CHLORIDE 104 mmol/L (98-107); CREATINE KINASE, TOTAL ONLY 284 U/L (39-308); GLOMERULAR FILTR. RATE CALC > 60 mL/min (>60); GLUCOSE,RANDOM 125 mg/dL (70-110); POTASSIUM 4.4 mmol/L (3.5-5.1); SODIUM SERUM 138 mmol/L (136-145); TOTAL PROTEIN, SERUM 4.9 g/dL (6.4-8.2); UREA NITROGEN, BLOOD 25 mg/dL (7-18)
[2024-10-04 11:07] LABS: RBC MORPHOLOGY COMMENT ABNORMAL RBC MORPH
[2024-10-04] MEDS: FLUCONAZOLE 10 MG/ML 5 ML SUSP ORAL.SYG GT SCH (13:19)
[2024-10-04 20:07] LABS: ATYPICAL P-ANCA AB <1:20 titer (Neg:<1:20); CYTOPLASMIC (C-ANCA) AB, IGG <1:20 titer (Neg:<1:20)
[2024-10-05] VITALS (7 sets, daily range): BP systolic 115–158; BP diastolic 68–96; PULSE 87–100; RESP 18–22; TEMP 98.8–101; O2SAT 92–100
[2024-10-05] MEDS: *CLINICAL-MEROPENEM DOSING CLINICAL ONE (11:37)
[2024-10-05] MEDS: MEROPENEM 1 GM in SODIUM CHLORIDE 0.9% 50 ML IV SCH (12:41)
[2024-10-05 22:10] LABS: GLUCOMETER DEV NAME(LOC) 5N.2C; GLUCOSE,POINT OF CARE 115 MG/DL (70-110)
[2024-10-05 22:10] LABS: GLUCOMETER DEV NAME(LOC) 5N.2C; GLUCOSE,POINT OF CARE 118 MG/DL (70-110)
[2024-10-05 22:10] LABS: GLUCOMETER DEV NAME(LOC) 5N.2C; GLUCOSE,POINT OF CARE 130 MG/DL (70-110)
[2024-10-05 22:10] LABS: GLUCOMETER DEV NAME(LOC) 5N.2C; GLUCOSE,POINT OF CARE 130 MG/DL (70-110)
[2024-10-05 22:10] LABS: GLUCOMETER DEV NAME(LOC) 5N.2C; GLUCOSE,POINT OF CARE 121 MG/DL (70-110)
[2024-10-05 22:10] LABS: GLUCOMETER DEV NAME(LOC) 5N.2C; GLUCOSE,POINT OF CARE 138 MG/DL (70-110)
[2024-10-06] VITALS (7 sets, daily range): BP systolic 128–159; BP diastolic 70–106; PULSE 74–98; RESP 18–23; TEMP 98.4–101; O2SAT 95–99
[2024-10-06 06:28] LABS: BASOPHILS % (AUTO) 0.3 % (0.0-2.0); EOSINOPHILS % (AUTO) 5.7 % (1.0-6.0); HEMATOCRIT 25.8 % (41-53); HEMOGLOBIN 8.3 g/dL (13.5-17.5); LYMPHOCYTES # (AUTO) 0.9 K/uL (1.0-4.8); LYMPHOCYTES % (AUTO) 10.4 % (22.0-44.0); MEAN CORPUSCULAR HEMOGLOBIN 24.6 pg (26.0-34.0); MEAN CORPUSCULAR VOLUME 77 fL (80-100); MONOCYTES # (AUTO) 0.7 K/uL (0.1-1.0); MONOCYTES % (AUTO) 7.6 % (2.0-9.0); NEUTROPHILS # (AUTO) 6.6 K/uL (1.8-7.7); PLATELET COUNT (AUTO) 681 K/uL (150-450); RED BLOOD CELL COUNT(AUTO) 3.35 MIL/uL (4.50-5.90); WHITE BLOOD COUNT (AUTO) 8.7 K/uL (4.5-11.0)
[2024-10-06 06:39] LABS: ANION GAP 6 mmol/L (8-16); CALCIUM, TOTAL 7.7 mg/dL (8.8-10.5); CARBON DIOXIDE 28 mmol/L (22-29); CHLORIDE 103 mmol/L (98-107); CREATININE 1.17 mg/dL (0.60-1.30); GLOMERULAR FILTR. RATE CALC > 60 mL/min (>60); GLUCOSE,RANDOM 104 mg/dL (70-110); POTASSIUM 4.9 mmol/L (3.5-5.1); SODIUM SERUM 137 mmol/L (136-145); UREA NITROGEN, BLOOD 36 mg/dL (7-18)
[2024-10-06 08:45] LABS: GLUCOMETER DEV NAME(LOC) 5S.2D; GLUCOSE,POINT OF CARE 113 MG/DL (70-110)
[2024-10-06 08:45] LABS: GLUCOMETER DEV NAME(LOC) 5S.2D; GLUCOSE,POINT OF CARE 134 MG/DL (70-110)
[2024-10-06 08:45] LABS: GLUCOMETER DEV NAME(LOC) 5S.2D; GLUCOSE,POINT OF CARE 118 MG/DL (70-110)
[2024-10-06 08:45] LABS: GLUCOMETER DEV NAME(LOC) 5S.2D; GLUCOSE,POINT OF CARE 115 MG/DL (70-110)
[2024-10-06] MEDS ORDERED: SODIUM CHLORIDE 0.9% 100 ML ONE (08:53)
[2024-10-06] MEDS ORDERED: 0.9% SODIUM CHLORIDE 10 ML SYRINGE IVP ONE (08:53)
[2024-10-06] MEDS ORDERED: IOHEXOL 350 MG/ML 100 ML VIAL ONE (08:53)
[2024-10-06] MEDS ORDERED: LIDOCAINE/PF 1% 30 ML VIAL ONE (09:30)
[2024-10-06 11:46] LABS: GLUCOMETER DEV NAME(LOC) 5S.2D; GLUCOSE,POINT OF CARE 101 MG/DL (70-110)
[2024-10-06 16:11] LABS: GLUCOMETER DEV NAME(LOC) 5S.2D; GLUCOSE,POINT OF CARE 91 MG/DL (70-110)
[2024-10-06 21:01] LABS: GLUCOMETER DEV NAME(LOC) 5S.2D; GLUCOSE,POINT OF CARE 102 MG/DL (70-110)
[2024-10-07] VITALS: BP 145/83; PULSE 89; RESP 20; TEMP 98.4; O2SAT 97
[2024-10-07 04:00] VITALS: BP 145/81; PULSE 89; RESP 20; TEMP 100.4; O2SAT 97
[2024-10-07 07:06] LABS: ALBUMIN 1.3 g/dL (3.4-5.0); BILIRUBIN,TOTAL 0.3 mg/dL (0.1-1.0); CALCIUM, TOTAL 7.9 mg/dL (8.8-10.5); CREATININE 1.23 mg/dL (0.60-1.30); POTASSIUM 4.9 mmol/L (3.5-5.1); TOTAL PROTEIN, SERUM 5.4 g/dL (6.4-8.2)
[2024-10-07 08:52] VITALS: BP 138/94; PULSE 88; RESP 19; TEMP 99.9; O2SAT 98
[2024-10-07 11:21] LABS: GLUCOMETER DEV NAME(LOC) 5S.2D; GLUCOSE,POINT OF CARE 129 MG/DL (70-110)
[2024-10-07 11:21] LABS: GLUCOMETER DEV NAME(LOC) 5S.2D; GLUCOSE,POINT OF CARE 114 MG/DL (70-110)
[2024-10-07 11:42] VITALS: BP 132/77; PULSE 88; RESP 20; TEMP 100; O2SAT 97
[2024-10-07 14:07] LABS: QUANTIFERON+, Nil Value 0.04 IU/mL; QUANTIFERON+,Mitogen Value 0.13 IU/mL; QUANTIFERON+,TB1 Antigen Value 0.05 IU/mL; QUANTIFERON+,TB2 Antigen Value 0.06 IU/mL; QUANTIFERON, TB GOLD PLUS Indeterminate (Negative)
[2024-10-07 16:36] VITALS: BP 145/82; PULSE 66; RESP 19; TEMP 98.2; O2SAT 97
[2024-10-07 17:05] LABS: GLUCOMETER DEV NAME(LOC) 5S.2D; GLUCOSE,POINT OF CARE 126 MG/DL (70-110)
[2024-10-07 21:27] VITALS: BP 132/67; PULSE 92; RESP 18; TEMP 98.3; O2SAT 97
[2024-10-08 00:34] VITALS: BP 135/70; PULSE 85; RESP 18; TEMP 98.4; O2SAT 97
[2024-10-08 05:06] VITALS: BP 128/72; PULSE 83; RESP 18; TEMP 98; O2SAT 98
[2024-10-08 06:51] LABS: BASOPHILS % (AUTO) 0.6 % (0.0-2.0); EOSINOPHILS % (AUTO) 2.3 % (1.0-6.0); HEMATOCRIT 26.3 % (41-53); HEMOGLOBIN 8.6 g/dL (13.5-17.5); LYMPHOCYTES # (AUTO) 0.7 K/uL (1.0-4.8); LYMPHOCYTES % (AUTO) 9.2 % (22.0-44.0); MEAN CORPUSCULAR HEMOGLOBIN 25.1 pg (26.0-34.0); MEAN CORPUSCULAR HGB CONC 32.6 G/dL (31.0-37.0); MEAN CORPUSCULAR VOLUME 77 fL (80-100); MONOCYTES # (AUTO) 0.8 K/uL (0.1-1.0); MONOCYTES % (AUTO) 9.6 % (2.0-9.0); NEUTROPHILS # (AUTO) 6.4 K/uL (1.8-7.7); NEUTROPHILS % (AUTO) 78.3 % (40.0-70.0); PLATELET COUNT (AUTO) 697 K/uL (150-450); RED BLOOD CELL COUNT(AUTO) 3.41 MIL/uL (4.50-5.90); RED CELL DISTRIBUTION WIDTH 21.3 % (11.5-14.5); WHITE BLOOD COUNT (AUTO) 8.2 K/uL (4.5-11.0)
[2024-10-08 07:04] LABS: CALCIUM, TOTAL 7.7 mg/dL (8.8-10.5); CREATININE 1.24 mg/dL (0.60-1.30); POTASSIUM 4.9 mmol/L (3.5-5.1)
[2024-10-08 07:36] VITALS: BP 147/97; PULSE 104; RESP 18; TEMP 99.3; O2SAT 98
[2024-10-08 09:36] LABS: GLUCOMETER DEV NAME(LOC) 5S.2D; GLUCOSE,POINT OF CARE 128 MG/DL (70-110)
[2024-10-08 09:36] LABS: GLUCOMETER DEV NAME(LOC) 5S.2D; GLUCOSE,POINT OF CARE 115 MG/DL (70-110)
[2024-10-08 11:41] LABS: GLUCOMETER DEV NAME(LOC) 5N.1D; GLUCOSE,POINT OF CARE 127 MG/DL (70-110)
[2024-10-08 12:53] VITALS: BP 136/77; PULSE 92; RESP 18; TEMP 98.6; O2SAT 97
[2024-10-08 15:10] VITALS: BP 141/69; PULSE 72; RESP 19; TEMP 98.4; O2SAT 98
[2024-10-08] MEDS: ETHAMBUTOL HCL 400 MG TABLET GT SCH (15:29)
[2024-10-08] MEDS: PYRAZINAMIDE 500 MG TABLET GT SCH (15:29)
[2024-10-08] MEDS: ISONIAZID 300 MG TABLET GT SCH (15:29)
[2024-10-08] MEDS: PYRIDOXINE HCL 50 MG TABLET GT SCH (15:30)
[2024-10-08] MEDS: CASPOFUNGIN ACETATE 70 MG in SODIUM CHLORIDE 0.9% 250 ML IV ONE (17:24)
[2024-10-08 17:26] LABS: GLUCOMETER DEV NAME(LOC) 5N.1D; GLUCOSE,POINT OF CARE 156 MG/DL (70-110)
[2024-10-08 21:35] VITALS: BP 128/68; PULSE 101; RESP 21; TEMP 100.2; O2SAT 95
[2024-10-09] VITALS (7 sets, daily range): BP systolic 115–145; BP diastolic 61–90; PULSE 90–104; RESP 17–21; TEMP 98.2–101.5; O2SAT 95–98
[2024-10-09 06:06] LABS: GLUCOMETER DEV NAME(LOC) 5N.1D; GLUCOSE,POINT OF CARE 129 MG/DL (70-110)
[2024-10-09 06:06] LABS: GLUCOMETER DEV NAME(LOC) 5N.1D; GLUCOSE,POINT OF CARE 117 MG/DL (70-110)
[2024-10-09 07:23] LABS: BASOPHILS % (AUTO) 0.6 % (0.0-2.0); EOSINOPHILS % (AUTO) 1.9 % (1.0-6.0); HEMATOCRIT 25.8 % (41-53); HEMOGLOBIN 8.1 g/dL (13.5-17.5); LYMPHOCYTES # (AUTO) 0.7 K/uL (1.0-4.8); LYMPHOCYTES % (AUTO) 7.7 % (22.0-44.0); MEAN CORPUSCULAR HEMOGLOBIN 24.2 pg (26.0-34.0); MEAN CORPUSCULAR HGB CONC 31.3 G/dL (31.0-37.0); MEAN CORPUSCULAR VOLUME 77 fL (80-100); MONOCYTES # (AUTO) 0.7 K/uL (0.1-1.0); MONOCYTES % (AUTO) 8.6 % (2.0-9.0); NEUTROPHILS # (AUTO) 7.1 K/uL (1.8-7.7); NEUTROPHILS % (AUTO) 81.2 % (40.0-70.0); PLATELET COUNT (AUTO) 676 K/uL (150-450); RED BLOOD CELL COUNT(AUTO) 3.34 MIL/uL (4.50-5.90); WHITE BLOOD COUNT (AUTO) 8.7 K/uL (4.5-11.0)
[2024-10-09 07:27] LABS: CALCIUM, TOTAL 7.8 mg/dL (8.8-10.5); CREATININE 1.33 mg/dL (0.60-1.30); POTASSIUM 4.7 mmol/L (3.5-5.1)
[2024-10-09 11:46] LABS: GLUCOMETER DEV NAME(LOC) 5N.2C; GLUCOSE,POINT OF CARE 161 MG/DL (70-110)
[2024-10-09 17:27] LABS: GLUCOMETER DEV NAME(LOC) 5N.1D; GLUCOSE,POINT OF CARE 114 MG/DL (70-110)
[2024-10-09] MEDS: CASPOFUNGIN ACETATE 50 MG in SODIUM CHLORIDE 0.9% 250 ML IV SCH (18:33)
[2024-10-09 18:41] LABS: APPEARANCE,URINE HAZY (CLEAR); BILIRUBIN,URINE NEGATIVE (NEGATIVE); COLOR,URINE DARK YELLOW (YELLOW); GLUCOSE, URINE (UA) NEGATIVE (NEGATIVE); KETONES,URINE NEGATIVE (NEGATIVE); LEUKOCYTE ESTERASE ,URINE LARGE (NEGATIVE); NITRATE,URINE NEGATIVE (NEGATIVE); OCCULT BLOOD,URINE LARGE (NEGATIVE); PH,URINE 6.5 (5.0-8.0); PROTEIN,URINE 100-200,SEE CONFIRM mg/dL (NEGATIVE); SPECIFIC GRAVITIY, URINE 1.032 (1.003-1.030)
[2024-10-09 18:55] LABS: SULFOSALICYLIC ACID,URINE 4+ (Negative)
[2024-10-09 18:57] LABS: BACTERIA,URINE Few /HPF (None Seen); SQUAMOUS EPITHELIAL CELL,UR Few /LPF (None Seen); WBC,URINE >100 /HPF (0-5)
[2024-10-10 00:21] LABS: GLUCOMETER DEV NAME(LOC) 5N.1D; GLUCOSE,POINT OF CARE 135 MG/DL (70-110)
[2024-10-10 05:00] VITALS: BP 128/82; PULSE 92; RESP 21; TEMP 99.1; O2SAT 100
[2024-10-10 05:01] LABS: GLUCOMETER DEV NAME(LOC) 5S.2D; GLUCOSE,POINT OF CARE 144 MG/DL (70-110)
[2024-10-10 05:46] LABS: GLUCOMETER DEV NAME(LOC) 5N.1D; GLUCOSE,POINT OF CARE 136 MG/DL (70-110)
[2024-10-10 07:43] LABS: BASOPHILS % (AUTO) 0.2 % (0.0-2.0); EOSINOPHILS % (AUTO) 2.4 % (1.0-6.0); HEMATOCRIT 24.4 % (41-53); HEMOGLOBIN 7.6 g/dL (13.5-17.5); LYMPHOCYTES # (AUTO) 0.6 K/uL (1.0-4.8); LYMPHOCYTES % (AUTO) 5.2 % (22.0-44.0); MEAN CORPUSCULAR HEMOGLOBIN 24.1 pg (26.0-34.0); MEAN CORPUSCULAR HGB CONC 31.3 G/dL (31.0-37.0); MEAN CORPUSCULAR VOLUME 77 fL (80-100); MONOCYTES # (AUTO) 0.7 K/uL (0.1-1.0); MONOCYTES % (AUTO) 6.5 % (2.0-9.0); NEUTROPHILS # (AUTO) 9.2 K/uL (1.8-7.7); PLATELET COUNT (AUTO) 683 K/uL (150-450); RED BLOOD CELL COUNT(AUTO) 3.17 MIL/uL (4.50-5.90); RED CELL DISTRIBUTION WIDTH 21.3 % (11.5-14.5); WHITE BLOOD COUNT (AUTO) 10.7 K/uL (4.5-11.0)
[2024-10-10 07:50] LABS: NEUTROPHILS % (AUTO) 85.7 % (40.0-70.0); RBC MORPHOLOGY COMMENT ABNORMAL RBC MORPH
[2024-10-10 07:55] LABS: ALBUMIN 1.2 g/dL (3.4-5.0); BILIRUBIN,TOTAL 0.6 mg/dL (0.1-1.0); CALCIUM, TOTAL 7.9 mg/dL (8.8-10.5); CREATININE 1.49 mg/dL (0.60-1.30); POTASSIUM 4.6 mmol/L (3.5-5.1); TOTAL PROTEIN, SERUM 5.3 g/dL (6.4-8.2)
[2024-10-10 08:24] VITALS: BP 156/85; PULSE 90; RESP 20; TEMP 99.3; O2SAT 97
[2024-10-10 10:07] LABS: COCCIDIOIDES BY CF(UCDAVIS) Negative; COCCIDIOIDES IMMUNODIF-UCDAVIS Positive
[2024-10-10 11:12] VITALS: BP 133/72; PULSE 104; RESP 20; TEMP 98.4; O2SAT 99
[2024-10-10 12:05] LABS: GLUCOMETER DEV NAME(LOC) 5N.1D; GLUCOSE,POINT OF CARE 159 MG/DL (70-110)
[2024-10-10 15:39] VITALS: BP 136/81; PULSE 93; RESP 20; TEMP 98.3; O2SAT 99
[2024-10-10 17:10] LABS: GLUCOMETER DEV NAME(LOC) 5N.1D; GLUCOSE,POINT OF CARE 133 MG/DL (70-110)
[2024-10-10 19:57] VITALS: BP 129/79; PULSE 105; RESP 20; TEMP 97.7; O2SAT 98
[2024-10-10] MEDS ORDERED: SODIUM CHLORIDE 0.9% 1,000 ML ONE (21:42)
[2024-10-10 23:51] VITALS: BP 129/65; PULSE 108; RESP 20; TEMP 97.9; O2SAT 97
[2024-10-11] VITALS (7 sets, daily range): BP systolic 109–132; BP diastolic 69–86; PULSE 100–112; RESP 19–20; TEMP 98.1–99; O2SAT 96–98
[2024-10-11 01:51] LABS: GLUCOMETER DEV NAME(LOC) 5N.1D; GLUCOSE,POINT OF CARE 141 MG/DL (70-110)
[2024-10-11 01:51] LABS: GLUCOMETER DEV NAME(LOC) 5N.1D; GLUCOSE,POINT OF CARE 134 MG/DL (70-110)
[2024-10-11 07:22] LABS: BASOPHILS % (AUTO) 0.7 % (0.0-2.0); EOSINOPHILS % (AUTO) 0.7 % (1.0-6.0); HEMATOCRIT 25.5 % (41-53); HEMOGLOBIN 8.1 g/dL (13.5-17.5); LYMPHOCYTES # (AUTO) 0.8 K/uL (1.0-4.8); LYMPHOCYTES % (AUTO) 8.5 % (22.0-44.0); MEAN CORPUSCULAR HEMOGLOBIN 24.4 pg (26.0-34.0); MEAN CORPUSCULAR HGB CONC 31.7 G/dL (31.0-37.0); MEAN CORPUSCULAR VOLUME 77 fL (80-100); MONOCYTES # (AUTO) 0.8 K/uL (0.1-1.0); MONOCYTES % (AUTO) 8.3 % (2.0-9.0); NEUTROPHILS # (AUTO) 7.5 K/uL (1.8-7.7); NEUTROPHILS % (AUTO) 81.8 % (40.0-70.0); PLATELET COUNT (AUTO) 736 K/uL (150-450); RED BLOOD CELL COUNT(AUTO) 3.31 MIL/uL (4.50-5.90); RED CELL DISTRIBUTION WIDTH 20.8 % (11.5-14.5); WHITE BLOOD COUNT (AUTO) 9.1 K/uL (4.5-11.0)
[2024-10-11 07:35] LABS: ALBUMIN 1.2 g/dL (3.4-5.0); BILIRUBIN,TOTAL 0.6 mg/dL (0.1-1.0); CALCIUM, TOTAL 8.1 mg/dL (8.8-10.5); CREATININE 1.88 mg/dL (0.60-1.30); POTASSIUM 4.8 mmol/L (3.5-5.1); TOTAL PROTEIN, SERUM 5.4 g/dL (6.4-8.2)
[2024-10-11 07:51] LABS: RBC MORPHOLOGY COMMENT ABNORMAL RBC MORPH
[2024-10-11] MEDS ORDERED: IOHEXOL 300 MG/ML 50 ML VIAL ONE (11:30)
[2024-10-11] MEDS: IOHEXOL 300 MG/ML 50 ML VIAL ICOR ONE (11:46)
[2024-10-11] MEDS: MEROPENEM 1 GM in SODIUM CHLORIDE 0.9% 50 ML IV SCH (16:54)
[2024-10-11 17:21] LABS: GLUCOMETER DEV NAME(LOC) 5S.2D; GLUCOSE,POINT OF CARE 106 MG/DL (70-110)
[2024-10-11 18:46] LABS: GLUCOMETER DEV NAME(LOC) 5N.1D; GLUCOSE,POINT OF CARE 115 MG/DL (70-110)
[2024-10-11 21:30] LABS: GLUCOMETER DEV NAME(LOC) 5S.2D; GLUCOSE,POINT OF CARE 128 MG/DL (70-110)
[2024-10-12 04:11] VITALS: BP 120/76; PULSE 108; RESP 19; TEMP 99.1; O2SAT 96
[2024-10-12 04:45] LABS: GLUCOMETER DEV NAME(LOC) 5S.2D; GLUCOSE,POINT OF CARE 131 MG/DL (70-110)
[2024-10-12 06:58] LABS: ALBUMIN 1.2 g/dL (3.4-5.0); BILIRUBIN,TOTAL 0.6 mg/dL (0.1-1.0); CREATININE 1.89 mg/dL (0.60-1.30); POTASSIUM 4.8 mmol/L (3.5-5.1); TOTAL PROTEIN, SERUM 5.3 g/dL (6.4-8.2)
[2024-10-12 08:23] VITALS: BP 124/81; PULSE 99; RESP 18; TEMP 98.6; O2SAT 97
[2024-10-12 11:50] VITALS: BP 131/84; PULSE 108; RESP 17; TEMP 99.1; O2SAT 98
[2024-10-12 16:45] VITALS: BP 133/80; PULSE 97; RESP 19; TEMP 97.6; O2SAT 99
[2024-10-12 20:00] VITALS: BP 134/87; PULSE 100; RESP 19; TEMP 97.7; O2SAT 100
[2024-10-12 20:40] LABS: GLUCOMETER DEV NAME(LOC) 5S.2D; GLUCOSE,POINT OF CARE 106 MG/DL (70-110)
[2024-10-13 00:36] VITALS: BP 146/78; PULSE 104; RESP 18; TEMP 98.3; O2SAT 97
[2024-10-13 04:00] VITALS: BP 134/81; PULSE 100; RESP 18; TEMP 97.9; O2SAT 98
[2024-10-13 06:35] LABS: BASOPHILS % (AUTO) 0.1 % (0.0-2.0); EOSINOPHILS % (AUTO) 0.5 % (1.0-6.0); HEMATOCRIT 26.6 % (41-53); HEMOGLOBIN 8.1 g/dL (13.5-17.5); LYMPHOCYTES # (AUTO) 0.6 K/uL (1.0-4.8); MEAN CORPUSCULAR HEMOGLOBIN 23.8 pg (26.0-34.0); MEAN CORPUSCULAR HGB CONC 30.6 G/dL (31.0-37.0); MEAN CORPUSCULAR VOLUME 78 fL (80-100); MONOCYTES # (AUTO) 0.9 K/uL (0.1-1.0); MONOCYTES % (AUTO) 8.5 % (2.0-9.0); NEUTROPHILS # (AUTO) 8.7 K/uL (1.8-7.7); NEUTROPHILS % (AUTO) 84.9 % (40.0-70.0); PLATELET COUNT (AUTO) 695 K/uL (150-450); RED BLOOD CELL COUNT(AUTO) 3.43 MIL/uL (4.50-5.90); RED CELL DISTRIBUTION WIDTH 21.3 % (11.5-14.5); WHITE BLOOD COUNT (AUTO) 10.2 K/uL (4.5-11.0)
[2024-10-13 06:45] LABS: GLUCOMETER DEV NAME(LOC) 5S.2D; GLUCOSE,POINT OF CARE 136 MG/DL (70-110)
[2024-10-13 06:48] LABS: ALBUMIN 1.3 g/dL (3.4-5.0); BILIRUBIN,TOTAL 0.4 mg/dL (0.1-1.0); CREATININE 1.78 mg/dL (0.60-1.30); POTASSIUM 4.8 mmol/L (3.5-5.1); TOTAL PROTEIN, SERUM 5.5 g/dL (6.4-8.2)
[2024-10-13 07:31] LABS: RBC MORPHOLOGY COMMENT ABNORMAL RBC MORPH
[2024-10-13 08:06] VITALS: BP 132/69; PULSE 102; RESP 19; TEMP 97.7; O2SAT 98
[2024-10-13 11:10] VITALS: BP 127/82; PULSE 98; RESP 20; TEMP 98; O2SAT 97
[2024-10-13 11:50] LABS: GLUCOMETER DEV NAME(LOC) 5S.2D; GLUCOSE,POINT OF CARE 110 MG/DL (70-110)
[2024-10-13 14:54] VITALS: BP 101/60; PULSE 107; RESP 18; TEMP 98.8; O2SAT 97
[2024-10-13] MEDS: FLUCONAZOLE 200 MG/NACL ISOOSM 100 ML IV SCH (18:29)
[2024-10-13 20:00] VITALS: BP 114/77; PULSE 99; RESP 18; TEMP 97.7; O2SAT 98
[2024-10-14] VITALS: BP 115/66; PULSE 102; RESP 18; TEMP 99.7; O2SAT 97
[2024-10-14 00:11] LABS: GLUCOMETER DEV NAME(LOC) 5S.2D; GLUCOSE,POINT OF CARE 118 MG/DL (70-110)
[2024-10-14 04:00] VITALS: BP 135/74; PULSE 95; RESP 18; TEMP 97.9; O2SAT 97
[2024-10-14 06:21] LABS: BASOPHILS % (AUTO) 0.2 % (0.0-2.0); EOSINOPHILS % (AUTO) 0.6 % (1.0-6.0); HEMATOCRIT 23.7 % (41-53); HEMOGLOBIN 7.2 g/dL (13.5-17.5); LYMPHOCYTES # (AUTO) 0.8 K/uL (1.0-4.8); LYMPHOCYTES % (AUTO) 6.5 % (22.0-44.0); MEAN CORPUSCULAR HEMOGLOBIN 23.9 pg (26.0-34.0); MEAN CORPUSCULAR HGB CONC 30.6 G/dL (31.0-37.0); MEAN CORPUSCULAR VOLUME 78 fL (80-100); MONOCYTES # (AUTO) 0.8 K/uL (0.1-1.0); MONOCYTES % (AUTO) 6.6 % (2.0-9.0); NEUTROPHILS # (AUTO) 10.2 K/uL (1.8-7.7); PLATELET COUNT (AUTO) 644 K/uL (150-450); RED BLOOD CELL COUNT(AUTO) 3.03 MIL/uL (4.50-5.90); WHITE BLOOD COUNT (AUTO) 11.8 K/uL (4.5-11.0)
[2024-10-14 06:42] LABS: ALBUMIN 1.2 g/dL (3.4-5.0); BILIRUBIN,TOTAL 0.6 mg/dL (0.1-1.0); CALCIUM, TOTAL 7.9 mg/dL (8.8-10.5); CREATININE 1.76 mg/dL (0.60-1.30); POTASSIUM 4.5 mmol/L (3.5-5.1)
[2024-10-14 07:00] LABS: NEUTROPHILS % (AUTO) 86.1 % (40.0-70.0)
[2024-10-14 07:01] LABS: RBC MORPHOLOGY COMMENT ABNORMAL RBC MORPH
[2024-10-14 08:00] VITALS: BP 120/75; PULSE 81; RESP 18; TEMP 98.6; O2SAT 97
[2024-10-14 09:08] LABS: QUANTIFERON+, Nil Value 0.07 IU/mL; QUANTIFERON+,Mitogen Value 0.12 IU/mL; QUANTIFERON+,TB1 Antigen Value 0.12 IU/mL; QUANTIFERON+,TB2 Antigen Value 0.13 IU/mL; QUANTIFERON, TB GOLD PLUS Indeterminate (Negative)
[2024-10-14 12:31] VITALS: BP 113/60; PULSE 98; RESP 18; O2SAT 97
[2024-10-14] MEDS: DEXTROSE 5%-WATER 1,000 ML IV SCH (12:33)
[2024-10-14 12:56] LABS: GLUCOMETER DEV NAME(LOC) 5S.2D; GLUCOSE,POINT OF CARE 135 MG/DL (70-110)
[2024-10-14 12:56] LABS: GLUCOMETER DEV NAME(LOC) 5S.2D; GLUCOSE,POINT OF CARE 130 MG/DL (70-110)
[2024-10-14 16:03] VITALS: BP 101/59; PULSE 100; RESP 18; TEMP 100.2; O2SAT 96
[2024-10-14 17:55] LABS: GLUCOMETER DEV NAME(LOC) 5S.2D; GLUCOSE,POINT OF CARE 126 MG/DL (70-110)
[2024-10-14 19:39] VITALS: BP 99/60; PULSE 109; RESP 20; TEMP 98.2; O2SAT 98
[2024-10-15] VITALS (7 sets, daily range): BP systolic 103–120; BP diastolic 55–82; PULSE 90–107; RESP 18–25; TEMP 98.6–99.7; O2SAT 95–99
[2024-10-15 06:16] LABS: GLUCOMETER DEV NAME(LOC) 5S.2D; GLUCOSE,POINT OF CARE 130 MG/DL (70-110)
[2024-10-15 06:16] LABS: GLUCOMETER DEV NAME(LOC) 5S.2D; GLUCOSE,POINT OF CARE 123 MG/DL (70-110)
[2024-10-15 06:27] LABS: BASOPHILS % (AUTO) 0.6 % (0.0-2.0); EOSINOPHILS % (AUTO) 1.4 % (1.0-6.0); HEMATOCRIT 25.2 % (41-53); HEMOGLOBIN 7.4 g/dL (13.5-17.5); LYMPHOCYTES # (AUTO) 0.6 K/uL (1.0-4.8); LYMPHOCYTES % (AUTO) 5.3 % (22.0-44.0); MEAN CORPUSCULAR HEMOGLOBIN 23.4 pg (26.0-34.0); MEAN CORPUSCULAR HGB CONC 29.4 G/dL (31.0-37.0); MEAN CORPUSCULAR VOLUME 80 fL (80-100); MONOCYTES # (AUTO) 0.6 K/uL (0.1-1.0); MONOCYTES % (AUTO) 5.2 % (2.0-9.0); NEUTROPHILS # (AUTO) 10.3 K/uL (1.8-7.7); PLATELET COUNT (AUTO) 581 K/uL (150-450); RED BLOOD CELL COUNT(AUTO) 3.17 MIL/uL (4.50-5.90); RED CELL DISTRIBUTION WIDTH 21.8 % (11.5-14.5); WHITE BLOOD COUNT (AUTO) 11.8 K/uL (4.5-11.0)
[2024-10-15 06:46] LABS: ALBUMIN 1.1 g/dL (3.4-5.0); BILIRUBIN,TOTAL 0.6 mg/dL (0.1-1.0); CALCIUM, TOTAL 7.6 mg/dL (8.8-10.5); CREATININE 1.59 mg/dL (0.60-1.30); NEUTROPHILS % (AUTO) 87.5 % (40.0-70.0); POTASSIUM 4.7 mmol/L (3.5-5.1); TOTAL PROTEIN, SERUM 4.8 g/dL (6.4-8.2)
[2024-10-15 08:35] LABS: RBC MORPHOLOGY COMMENT ABNORMAL RBC MORPH
[2024-10-15 12:10] LABS: GLUCOMETER DEV NAME(LOC) 5S.2D; GLUCOSE,POINT OF CARE 143 MG/DL (70-110)
[2024-10-15 17:01] LABS: GLUCOMETER DEV NAME(LOC) 5S.2D; GLUCOSE,POINT OF CARE 110 MG/DL (70-110)
[2024-10-16] VITALS (7 sets, daily range): BP systolic 98–120; BP diastolic 54–67; PULSE 96–106; RESP 18–25; TEMP 98–100.2; O2SAT 93–99
[2024-10-16 01:27] LABS: GLUCOMETER DEV NAME(LOC) 5S.2D; GLUCOSE,POINT OF CARE 96 MG/DL (70-110)
[2024-10-16 06:01] LABS: GLUCOMETER DEV NAME(LOC) 5S.2D; GLUCOSE,POINT OF CARE 90 MG/DL (70-110)
[2024-10-16 07:27] LABS: ALBUMIN 1.1 g/dL (3.4-5.0); CALCIUM, TOTAL 7.4 mg/dL (8.8-10.5); CREATININE 1.53 mg/dL (0.60-1.30); POTASSIUM 4.3 mmol/L (3.5-5.1)
[2024-10-16 07:54] LABS: BASOPHILS % (AUTO) 0.1 % (0.0-2.0); EOSINOPHILS % (AUTO) 1.5 % (1.0-6.0); HEMATOCRIT 25.8 % (41-53); HEMOGLOBIN 7.7 g/dL (13.5-17.5); LYMPHOCYTES # (AUTO) 0.6 K/uL (1.0-4.8); LYMPHOCYTES % (AUTO) 4.8 % (22.0-44.0); MEAN CORPUSCULAR HEMOGLOBIN 23.7 pg (26.0-34.0); MEAN CORPUSCULAR HGB CONC 29.9 G/dL (31.0-37.0); MEAN CORPUSCULAR VOLUME 79 fL (80-100); MONOCYTES # (AUTO) 0.7 K/uL (0.1-1.0); MONOCYTES % (AUTO) 5.3 % (2.0-9.0); NEUTROPHILS # (AUTO) 11.1 K/uL (1.8-7.7); PLATELET COUNT (AUTO) 499 K/uL (150-450); RED BLOOD CELL COUNT(AUTO) 3.26 MIL/uL (4.50-5.90); RED CELL DISTRIBUTION WIDTH 21.8 % (11.5-14.5); WHITE BLOOD COUNT (AUTO) 12.6 K/uL (4.5-11.0)
[2024-10-16 07:57] LABS: NEUTROPHILS % (AUTO) 88.3 % (40.0-70.0)
[2024-10-16 14:10] LABS: GLUCOMETER DEV NAME(LOC) 5S.2D; GLUCOSE,POINT OF CARE 107 MG/DL (70-110)
[2024-10-16 17:11] LABS: GLUCOMETER DEV NAME(LOC) 5S.2D; GLUCOSE,POINT OF CARE 104 MG/DL (70-110)
[2024-10-16 23:06] LABS: GLUCOMETER DEV NAME(LOC) 5S.2D; GLUCOSE,POINT OF CARE 121 MG/DL (70-110)
[2024-10-17] VITALS (14 sets, daily range): BP systolic 99–115; BP diastolic 60–77; PULSE 77–103; RESP 16–22; TEMP 97.9–99; O2SAT 98–100
[2024-10-17 06:43] LABS: BASOPHILS % (AUTO) 0.3 % (0.0-2.0); EOSINOPHILS % (AUTO) 0.6 % (1.0-6.0); HEMATOCRIT 22.4 % (41-53); LYMPHOCYTES # (AUTO) 0.5 K/uL (1.0-4.8); LYMPHOCYTES % (AUTO) 4.6 % (22.0-44.0); MEAN CORPUSCULAR HEMOGLOBIN 23.3 pg (26.0-34.0); MEAN CORPUSCULAR HGB CONC 30.3 G/dL (31.0-37.0); MEAN CORPUSCULAR VOLUME 77 fL (80-100); MONOCYTES # (AUTO) 0.7 K/uL (0.1-1.0); MONOCYTES % (AUTO) 5.9 % (2.0-9.0); NEUTROPHILS # (AUTO) 10.1 K/uL (1.8-7.7); PLATELET COUNT (AUTO) 409 K/uL (150-450); RED BLOOD CELL COUNT(AUTO) 2.91 MIL/uL (4.50-5.90); RED CELL DISTRIBUTION WIDTH 22.1 % (11.5-14.5); WHITE BLOOD COUNT (AUTO) 11.4 K/uL (4.5-11.0)
[2024-10-17 07:09] LABS: HEMOGLOBIN 6.8 g/dL (13.5-17.5)
[2024-10-17 07:10] LABS: NEUTROPHILS % (AUTO) 88.6 % (40.0-70.0); RBC MORPHOLOGY COMMENT ABNORMAL RBC MORPH
[2024-10-17 07:19] LABS: BILIRUBIN,TOTAL 1.2 mg/dL (0.1-1.0); CALCIUM, TOTAL 7.1 mg/dL (8.8-10.5); CREATININE 1.58 mg/dL (0.60-1.30); POTASSIUM 4.1 mmol/L (3.5-5.1); TOTAL PROTEIN, SERUM 4.5 g/dL (6.4-8.2)
[2024-10-17] MEDS ORDERED: SODIUM CHLORIDE 0.9% 500 ML IV ONE (07:43)
[2024-10-17 09:50] LABS: GLUCOMETER DEV NAME(LOC) 5S.2D; GLUCOSE,POINT OF CARE 106 MG/DL (70-110)
[2024-10-17] MEDS: DiphenhydrAMINE HCL 50 MG/ML VIAL IVP ONE (10:26)
[2024-10-17] MEDS: ACETAMINOPHEN 325 MG TABLET GT ONE (10:27)
[2024-10-17 13:36] LABS: GLUCOMETER DEV NAME(LOC) 5S.2D; GLUCOSE,POINT OF CARE 116 MG/DL (70-110)
[2024-10-17 19:05] LABS: GLUCOMETER DEV NAME(LOC) 5S.2D; GLUCOSE,POINT OF CARE 112 MG/DL (70-110)
[2024-10-18 00:17] VITALS: BP 104/73; PULSE 81; RESP 18; TEMP 98.4; O2SAT 99
[2024-10-18 03:23] VITALS: BP 120/78; PULSE 89; RESP 18; TEMP 98.4; O2SAT 97
[2024-10-18 05:55] LABS: GLUCOMETER DEV NAME(LOC) 5S.2D; GLUCOSE,POINT OF CARE 100 MG/DL (70-110)
[2024-10-18 06:11] LABS: EOSINOPHILS % (AUTO) 0.9 % (1.0-6.0); HEMATOCRIT 27.7 % (41-53); HEMOGLOBIN 8.4 g/dL (13.5-17.5); LYMPHOCYTES # (AUTO) 0.4 K/uL (1.0-4.8); LYMPHOCYTES % (AUTO) 3.5 % (22.0-44.0); MEAN CORPUSCULAR HEMOGLOBIN 24.6 pg (26.0-34.0); MEAN CORPUSCULAR HGB CONC 30.4 G/dL (31.0-37.0); MEAN CORPUSCULAR VOLUME 81 fL (80-100); MONOCYTES # (AUTO) 0.6 K/uL (0.1-1.0); MONOCYTES % (AUTO) 5.4 % (2.0-9.0); NEUTROPHILS # (AUTO) 10.3 K/uL (1.8-7.7); PLATELET COUNT (AUTO) 364 K/uL (150-450); RED BLOOD CELL COUNT(AUTO) 3.43 MIL/uL (4.50-5.90); RED CELL DISTRIBUTION WIDTH 21.8 % (11.5-14.5); WHITE BLOOD COUNT (AUTO) 11.5 K/uL (4.5-11.0)
[2024-10-18 06:24] LABS: BILIRUBIN,TOTAL 2.5 mg/dL (0.1-1.0); CALCIUM, TOTAL 7.1 mg/dL (8.8-10.5); CREATININE 1.66 mg/dL (0.60-1.30); POTASSIUM 4.4 mmol/L (3.5-5.1); TOTAL PROTEIN, SERUM 4.6 g/dL (6.4-8.2)
[2024-10-18 06:48] LABS: NEUTROPHILS % (AUTO) 89.2 % (40.0-70.0); RBC MORPHOLOGY COMMENT ABNORMAL RBC MORPH
[2024-10-18 07:50] VITALS: BP 109/68; PULSE 98; RESP 18; TEMP 98.8; O2SAT 97
[2024-10-18 08:21] LABS: GLUCOMETER DEV NAME(LOC) 5S.2D; GLUCOSE,POINT OF CARE 88 MG/DL (70-110)
[2024-10-18 09:07] LABS: COCCIDIOIDES BY CF(UCDAVIS) Positive; COCCIDIOIDES IMMUNODIF-UCDAVIS Positive
[2024-10-18 12:00] VITALS: BP 97/60; PULSE 87; RESP 18; TEMP 98.8; O2SAT 98
[2024-10-18 12:31] LABS: GLUCOMETER DEV NAME(LOC) 5S.2D; GLUCOSE,POINT OF CARE 106 MG/DL (70-110)
[2024-10-18 16:05] VITALS: BP 111/60; PULSE 93; RESP 18; TEMP 98.6; O2SAT 98
[2024-10-18 20:08] VITALS: BP 90/48; PULSE 92; RESP 20; TEMP 99.3; O2SAT 99
[2024-10-18 22:01] LABS: GLUCOMETER DEV NAME(LOC) 5S.1D; GLUCOSE,POINT OF CARE 120 MG/DL (70-110)
[2024-10-19 00:14] VITALS: BP 97/47; PULSE 75; RESP 20; TEMP 98.2; O2SAT 98
[2024-10-19 05:44] VITALS: BP 117/58; PULSE 72; RESP 18; TEMP 97.5; O2SAT 100
[2024-10-19 05:57] LABS: BASOPHILS % (AUTO) 0.3 % (0.0-2.0); EOSINOPHILS % (AUTO) 0.7 % (1.0-6.0); HEMATOCRIT 25.3 % (41-53); HEMOGLOBIN 7.8 g/dL (13.5-17.5); LYMPHOCYTES # (AUTO) 0.3 K/uL (1.0-4.8); LYMPHOCYTES % (AUTO) 2.4 % (22.0-44.0); MEAN CORPUSCULAR HEMOGLOBIN 24.7 pg (26.0-34.0); MEAN CORPUSCULAR VOLUME 80 fL (80-100); MONOCYTES # (AUTO) 0.5 K/uL (0.1-1.0); MONOCYTES % (AUTO) 4.3 % (2.0-9.0); NEUTROPHILS # (AUTO) 9.8 K/uL (1.8-7.7); PLATELET COUNT (AUTO) 337 K/uL (150-450); RED BLOOD CELL COUNT(AUTO) 3.17 MIL/uL (4.50-5.90); RED CELL DISTRIBUTION WIDTH 22.5 % (11.5-14.5); WHITE BLOOD COUNT (AUTO) 10.6 K/uL (4.5-11.0)
[2024-10-19 05:58] LABS: ALBUMIN 0.9 g/dL (3.4-5.0); BILIRUBIN,TOTAL 3.3 mg/dL (0.1-1.0); CALCIUM, TOTAL 6.9 mg/dL (8.8-10.5); CREATININE 1.89 mg/dL (0.60-1.30); POTASSIUM 3.5 mmol/L (3.5-5.1); TOTAL PROTEIN, SERUM 4.2 g/dL (6.4-8.2)
[2024-10-19 06:27] LABS: NEUTROPHILS % (AUTO) 92.3 % (40.0-70.0)
[2024-10-19 07:47] LABS: RBC MORPHOLOGY COMMENT ABNORMAL RBC MORPH
[2024-10-19 08:00] VITALS: BP 94/57; PULSE 73; RESP 18; TEMP 98.6; O2SAT 99
[2024-10-19 08:20] LABS: GLUCOMETER DEV NAME(LOC) 5S.2D; GLUCOSE,POINT OF CARE 115 MG/DL (70-110)
[2024-10-19 08:20] LABS: GLUCOMETER DEV NAME(LOC) 5S.1D; GLUCOSE,POINT OF CARE 100 MG/DL (70-110)
[2024-10-19] MEDS: SODIUM CHLORIDE 0.9% IV SCH (09:14)
[2024-10-19] MEDS: ISAVUCONAZONIUM SULFATE IV SCH (09:14)
[2024-10-19 12:00] VITALS: BP 91/54; PULSE 76; RESP 18; TEMP 98.2; O2SAT 100
[2024-10-19 16:00] VITALS: BP 90/55; PULSE 80; RESP 18; TEMP 98.6; O2SAT 100
[2024-10-19 16:05] LABS: GLUCOMETER DEV NAME(LOC) 5S.2D; GLUCOSE,POINT OF CARE 87 MG/DL (70-110)
[2024-10-19 19:00] VITALS: BP 110/63; PULSE 70; RESP 18; TEMP 97.6; O2SAT 96
[2024-10-19 20:15] LABS: GLUCOMETER DEV NAME(LOC) 5S.1D; GLUCOSE,POINT OF CARE 88 MG/DL (70-110)
[2024-10-20 00:28] VITALS: BP 88/62; PULSE 97; RESP 20; TEMP 98.8; O2SAT 100
[2024-10-20 04:57] VITALS: BP 103/63; PULSE 86; RESP 18; TEMP 99.5; O2SAT 100
[2024-10-20 06:06] LABS: BASOPHILS % (AUTO) 0.3 % (0.0-2.0); EOSINOPHILS % (AUTO) 0.6 % (1.0-6.0); HEMATOCRIT 26.2 % (41-53); HEMOGLOBIN 7.9 g/dL (13.5-17.5); LYMPHOCYTES # (AUTO) 0.4 K/uL (1.0-4.8); LYMPHOCYTES % (AUTO) 3.2 % (22.0-44.0); MEAN CORPUSCULAR HEMOGLOBIN 24.1 pg (26.0-34.0); MEAN CORPUSCULAR HGB CONC 30.3 G/dL (31.0-37.0); MEAN CORPUSCULAR VOLUME 80 fL (80-100); MONOCYTES # (AUTO) 0.7 K/uL (0.1-1.0); NEUTROPHILS # (AUTO) 11.1 K/uL (1.8-7.7); PLATELET COUNT (AUTO) 386 K/uL (150-450); RED BLOOD CELL COUNT(AUTO) 3.29 MIL/uL (4.50-5.90); RED CELL DISTRIBUTION WIDTH 22.7 % (11.5-14.5); WHITE BLOOD COUNT (AUTO) 12.4 K/uL (4.5-11.0)
[2024-10-20 06:23] LABS: ALBUMIN 0.9 g/dL (3.4-5.0); BILIRUBIN,TOTAL 4.2 mg/dL (0.1-1.0); CALCIUM, TOTAL 6.8 mg/dL (8.8-10.5); CREATININE 2.15 mg/dL (0.60-1.30); POTASSIUM 4.1 mmol/L (3.5-5.1); TOTAL PROTEIN, SERUM 4.3 g/dL (6.4-8.2)
[2024-10-20 06:30] LABS: GLUCOMETER DEV NAME(LOC) 5S.1D; GLUCOSE,POINT OF CARE 99 MG/DL (70-110)
[2024-10-20 06:48] LABS: NEUTROPHILS % (AUTO) 89.9 % (40.0-70.0)
[2024-10-20 08:19] VITALS: BP 97/51; PULSE 67; RESP 20; TEMP 98.4; O2SAT 97
[2024-10-20 09:08] LABS: RBC MORPHOLOGY COMMENT ABNORMAL RBC MORPH
[2024-10-20] MEDS: SODIUM CHLORIDE 0.45% 1,000 ML IV SCH (09:42)
[2024-10-20 10:36] LABS: GLUCOMETER DEV NAME(LOC) 5S.1D; GLUCOSE,POINT OF CARE 102 MG/DL (70-110)
[2024-10-20 12:45] LABS: GLUCOMETER DEV NAME(LOC) 5S.1D; GLUCOSE,POINT OF CARE 101 MG/DL (70-110)
[2024-10-20 15:08] VITALS: BP 104/54; PULSE 71; RESP 19; TEMP 97.5; O2SAT 96
[2024-10-20 18:08] LABS: PROTHROMBIN TIME 12.3 SEC (9.4-11.6)
[2024-10-20 20:00] VITALS: BP 106/61; PULSE 71; RESP 20; TEMP 97.7; O2SAT 99
[2024-10-20 20:01] LABS: GLUCOMETER DEV NAME(LOC) 5S.2D; GLUCOSE,POINT OF CARE 95 MG/DL (70-110)
[2024-10-21] VITALS: BP 110/62; PULSE 80; RESP 20; TEMP 98.2; O2SAT 99
[2024-10-21 04:00] VITALS: BP 106/64; PULSE 84; RESP 20; TEMP 98.4; O2SAT 98
[2024-10-21 06:46] LABS: ALBUMIN 0.9 g/dL (3.4-5.0); BILIRUBIN,TOTAL 5.3 mg/dL (0.1-1.0); CALCIUM, TOTAL 6.6 mg/dL (8.8-10.5); CREATININE 2.22 mg/dL (0.60-1.30); POTASSIUM 4.4 mmol/L (3.5-5.1); TOTAL PROTEIN, SERUM 4.4 g/dL (6.4-8.2)
[2024-10-21 08:00] VITALS: BP 75/44; PULSE 79; RESP 18; TEMP 98.6; O2SAT 95
[2024-10-21 08:56] LABS: GLUCOMETER DEV NAME(LOC) 5S.2D; GLUCOSE,POINT OF CARE 88 MG/DL (70-110)
[2024-10-21 08:56] LABS: GLUCOMETER DEV NAME(LOC) 5S.2D; GLUCOSE,POINT OF CARE 102 MG/DL (70-110)
[2024-10-21 11:36] VITALS: BP 91/42; PULSE 93; RESP 18; TEMP 98.8; O2SAT 99
[2024-10-21] MEDS: MIDODRINE HCL 5 MG TABLET PO SCH (12:15)
[2024-10-21 12:55] LABS: GLUCOMETER DEV NAME(LOC) 5S.1D; GLUCOSE,POINT OF CARE 105 MG/DL (70-110)
[2024-10-21 16:04] VITALS: BP 102/56; PULSE 90; RESP 19; TEMP 98.6; O2SAT 100
[2024-10-21 18:56] LABS: GLUCOMETER DEV NAME(LOC) 5S.1D; GLUCOSE,POINT OF CARE 102 MG/DL (70-110)
[2024-10-21 20:00] VITALS: BP 106/64; PULSE 77; RESP 20; TEMP 98.6; O2SAT 97
[2024-10-22] VITALS: BP 146/73; PULSE 80; RESP 20; TEMP 99.5
[2024-10-22 04:00] VITALS: BP 133/73; PULSE 87; RESP 20; TEMP 99.2; O2SAT 99
[2024-10-22] MEDS ORDERED: SODIUM CHLORIDE 0.9% IV SCH (06:00)
[2024-10-22] MEDS ORDERED: ISAVUCONAZONIUM SULFATE IV SCH (06:00)
[2024-10-22 06:39] LABS: ALBUMIN 0.9 g/dL (3.4-5.0); CALCIUM, TOTAL 6.6 mg/dL (8.8-10.5); CREATININE 2.28 mg/dL (0.60-1.30); TOTAL PROTEIN, SERUM 4.6 g/dL (6.4-8.2)
[2024-10-22 08:11] VITALS: BP 118/54; PULSE 69; RESP 28; TEMP 98.4; O2SAT 100
[2024-10-22 08:34] LABS: BASOPHILS % (AUTO) 0.3 % (0.0-2.0); EOSINOPHILS % (AUTO) 0.3 % (1.0-6.0); HEMATOCRIT 25.1 % (41-53); HEMOGLOBIN 7.7 g/dL (13.5-17.5); LYMPHOCYTES # (AUTO) 0.6 K/uL (1.0-4.8); LYMPHOCYTES % (AUTO) 4.9 % (22.0-44.0); MEAN CORPUSCULAR HEMOGLOBIN 24.3 pg (26.0-34.0); MEAN CORPUSCULAR HGB CONC 30.8 G/dL (31.0-37.0); MEAN CORPUSCULAR VOLUME 79 fL (80-100); MONOCYTES # (AUTO) 0.9 K/uL (0.1-1.0); NEUTROPHILS # (AUTO) 10.1 K/uL (1.8-7.7); PLATELET COUNT (AUTO) 429 K/uL (150-450); RED BLOOD CELL COUNT(AUTO) 3.18 MIL/uL (4.50-5.90); RED CELL DISTRIBUTION WIDTH 23.5 % (11.5-14.5); WHITE BLOOD COUNT (AUTO) 11.7 K/uL (4.5-11.0)
[2024-10-22 08:45] LABS: NEUTROPHILS % (AUTO) 86.5 % (40.0-70.0)
[2024-10-22] MEDS: SODIUM CHLORIDE 0.9% 500 ML IV ONE (08:56)
[2024-10-22] MEDS ORDERED: MEBROFENIN TC99M/MCL ISOTOPE 1 EA INJ INJ ONE (09:30)
[2024-10-22 11:40] LABS: GLUCOMETER DEV NAME(LOC) 5S.1D; GLUCOSE,POINT OF CARE 105 MG/DL (70-110)
[2024-10-22 12:33] VITALS: BP 117/60; PULSE 77; RESP 18; TEMP 98.4; O2SAT 99
[2024-10-22 15:36] LABS: LACTIC ACID 1.4 mmol/L (0.4-2.0)
[2024-10-22 15:44] LABS: ACETAMINOPHEN < 2 mcg/mL (10-30)
[2024-10-22] MEDS: ALBUMIN HUMAN 25%-50GM/200ML 200 ML IV ONE (16:10)
[2024-10-22 16:11] VITALS: BP 115/65; PULSE 73; RESP 20; TEMP 99; O2SAT 100
[2024-10-22 17:15] LABS: PROTHROMBIN TIME 12.3 SEC (9.4-11.6)
[2024-10-22 17:20] LABS: GLUCOMETER DEV NAME(LOC) 5S.2D; GLUCOSE,POINT OF CARE 95 MG/DL (70-110)
[2024-10-22 17:32] LABS: ALBUMIN 1.1 g/dL (3.4-5.0); BILIRUBIN,TOTAL 5.5 mg/dL (0.1-1.0); CALCIUM, TOTAL 6.9 mg/dL (8.8-10.5); CREATININE 2.31 mg/dL (0.60-1.30); POTASSIUM 4.1 mmol/L (3.5-5.1); TOTAL PROTEIN, SERUM 4.7 g/dL (6.4-8.2)
[2024-10-22 18:30] LABS: GLUCOMETER DEV NAME(LOC) 5S.2D; GLUCOSE,POINT OF CARE 104 MG/DL (70-110)
[2024-10-22] MEDS: CITRIC ACID/SODIUM CITRATE 30 ML SOLUTION UDCUP PEG SCH (20:26)
[2024-10-22 20:35] VITALS: BP 145/58; PULSE 73; RESP 20; TEMP 98.8; O2SAT 99
[2024-10-22 23:06] LABS: COCCIDIOIDES BY CF(UCDAVIS) Negative; COCCIDIOIDES IMMUNODIF-UCDAVIS Positive
[2024-10-23] VITALS (8 sets, daily range): BP systolic 111–139; BP diastolic 56–85; PULSE 68–96; RESP 18–21; TEMP 98–101.7; O2SAT 90–98
[2024-10-23 06:21] LABS: GLUCOMETER DEV NAME(LOC) 5S.2D; GLUCOSE,POINT OF CARE 107 MG/DL (70-110)
[2024-10-23 06:21] LABS: GLUCOMETER DEV NAME(LOC) 5S.2D; GLUCOSE,POINT OF CARE 99 MG/DL (70-110)
[2024-10-23 06:58] LABS: ALBUMIN 1.5 g/dL (3.4-5.0); BILIRUBIN,TOTAL 5.4 mg/dL (0.1-1.0); CALCIUM, TOTAL 7.3 mg/dL (8.8-10.5); CREATININE 2.24 mg/dL (0.60-1.30); POTASSIUM 3.8 mmol/L (3.5-5.1); TOTAL PROTEIN, SERUM 4.8 g/dL (6.4-8.2)
[2024-10-23 08:41] LABS: BASOPHILS % (AUTO) 0.1 % (0.0-2.0); HEMOGLOBIN 7.3 g/dL (13.5-17.5); LYMPHOCYTES # (AUTO) 0.3 K/uL (1.0-4.8); LYMPHOCYTES % (AUTO) 3.7 % (22.0-44.0); MEAN CORPUSCULAR HEMOGLOBIN 24.5 pg (26.0-34.0); MEAN CORPUSCULAR HGB CONC 30.5 G/dL (31.0-37.0); MEAN CORPUSCULAR VOLUME 80 fL (80-100); MONOCYTES # (AUTO) 0.5 K/uL (0.1-1.0); MONOCYTES % (AUTO) 5.3 % (2.0-9.0); NEUTROPHILS # (AUTO) 7.6 K/uL (1.8-7.7); PLATELET COUNT (AUTO) 365 K/uL (150-450); RED BLOOD CELL COUNT(AUTO) 2.99 MIL/uL (4.50-5.90); RED CELL DISTRIBUTION WIDTH 24.1 % (11.5-14.5); WHITE BLOOD COUNT (AUTO) 8.5 K/uL (4.5-11.0)
[2024-10-23 09:09] LABS: NEUTROPHILS % (AUTO) 88.9 % (40.0-70.0)
[2024-10-23] MEDS ORDERED: SODIUM CHLORIDE 0.9% 500 ML IV ONE (14:26)
[2024-10-23 17:20] LABS: GLUCOMETER DEV NAME(LOC) 5S.2D; GLUCOSE,POINT OF CARE 116 MG/DL (70-110)
[2024-10-23 22:06] LABS: GLUCOMETER DEV NAME(LOC) 5S.2D; GLUCOSE,POINT OF CARE 115 MG/DL (70-110)
[2024-10-24 04:26] VITALS: BP 115/68; PULSE 90; RESP 20; TEMP 100; O2SAT 95
[2024-10-24 08:00] VITALS: BP 122/71; PULSE 93; RESP 20; TEMP 99.1; O2SAT 96
[2024-10-24 08:38] LABS: BASOPHILS % (AUTO) 0.2 % (0.0-2.0); EOSINOPHILS % (AUTO) 1.9 % (1.0-6.0); HEMATOCRIT 24.4 % (41-53); HEMOGLOBIN 7.6 g/dL (13.5-17.5); LYMPHOCYTES # (AUTO) 0.4 K/uL (1.0-4.8); LYMPHOCYTES % (AUTO) 4.1 % (22.0-44.0); MEAN CORPUSCULAR HEMOGLOBIN 24.3 pg (26.0-34.0); MEAN CORPUSCULAR HGB CONC 31.3 G/dL (31.0-37.0); MEAN CORPUSCULAR VOLUME 77 fL (80-100); MONOCYTES # (AUTO) 0.6 K/uL (0.1-1.0); MONOCYTES % (AUTO) 6.3 % (2.0-9.0); NEUTROPHILS # (AUTO) 7.7 K/uL (1.8-7.7); PLATELET COUNT (AUTO) 424 K/uL (150-450); RED BLOOD CELL COUNT(AUTO) 3.15 MIL/uL (4.50-5.90); RED CELL DISTRIBUTION WIDTH 23.3 % (11.5-14.5); WHITE BLOOD COUNT (AUTO) 8.8 K/uL (4.5-11.0)
[2024-10-24 08:46] LABS: NEUTROPHILS % (AUTO) 87.5 % (40.0-70.0); RBC MORPHOLOGY COMMENT ABNORMAL RBC MORPH
[2024-10-24 09:06] LABS: ALBUMIN 1.4 g/dL (3.4-5.0); BILIRUBIN,TOTAL 2.9 mg/dL (0.1-1.0); CALCIUM, TOTAL 7.7 mg/dL (8.8-10.5); CREATININE 2.28 mg/dL (0.60-1.30); POTASSIUM 3.4 mmol/L (3.5-5.1); TOTAL PROTEIN, SERUM 5.2 g/dL (6.4-8.2)
[2024-10-24 10:01] LABS: GLUCOMETER DEV NAME(LOC) 5N.1D; GLUCOSE,POINT OF CARE 135 MG/DL (70-110)
[2024-10-24 10:01] LABS: GLUCOMETER DEV NAME(LOC) 5N.1D; GLUCOSE,POINT OF CARE 123 MG/DL (70-110)
[2024-10-24 12:03] VITALS: BP 117/61; PULSE 85; RESP 21; TEMP 98.8; O2SAT 94
[2024-10-24] MEDS: POTASSIUM CHLORIDE 20 MEQ ER TABLET PO PRN (14:14)
[2024-10-24 16:19] VITALS: BP 128/79; PULSE 92; RESP 20; TEMP 99.3; O2SAT 95
[2024-10-24] MEDS: POTASSIUM CHLORIDE 10% 40 MEQ/30 ML LIQUID UDCUP GT ONE (16:29)
[2024-10-24 18:40] LABS: GLUCOMETER DEV NAME(LOC) 5S.2D; GLUCOSE,POINT OF CARE 122 MG/DL (70-110)
[2024-10-24 20:30] VITALS: BP 115/58; PULSE 97; RESP 20; TEMP 100; O2SAT 98
[2024-10-25] MEDS: PIPERACILLIN/TAZO 3.375 GM/D5W 50 ML IV SCH (00:29)
[2024-10-25 00:45] VITALS: BP 118/64; PULSE 79; RESP 20; TEMP 100; O2SAT 99
[2024-10-25 01:14] LABS: APPEARANCE,URINE TURBID (CLEAR); BILIRUBIN,URINE NEGATIVE (NEGATIVE); COLOR,URINE YELLOW (YELLOW); GLUCOSE, URINE (UA) NEGATIVE (NEGATIVE); KETONES,URINE NEGATIVE (NEGATIVE); LEUKOCYTE ESTERASE ,URINE LARGE (NEGATIVE); NITRATE,URINE NEGATIVE (NEGATIVE); OCCULT BLOOD,URINE LARGE (NEGATIVE); PH,URINE 5.5 (5.0-8.0); PROTEIN,URINE 100-200,SEE CONFIRM mg/dL (NEGATIVE); SPECIFIC GRAVITIY, URINE 1.015 (1.003-1.030)
[2024-10-25 01:28] LABS: BACTERIA,URINE Many /HPF (None Seen); SQUAMOUS EPITHELIAL CELL,UR Few /LPF (None Seen); SULFOSALICYLIC ACID,URINE 4+ (Negative); WBC,URINE 51-100 /HPF (0-5)
[2024-10-25 01:50] LABS: GLUCOMETER DEV NAME(LOC) 5S.2D; GLUCOSE,POINT OF CARE 135 MG/DL (70-110)
[2024-10-25 05:36] VITALS: BP 114/59; PULSE 86; RESP 20; TEMP 100; O2SAT 100
[2024-10-25 08:20] VITALS: BP 133/62; PULSE 79; RESP 19; TEMP 99.3; O2SAT 100
[2024-10-25 11:05] LABS: ALBUMIN 1.2 g/dL (3.4-5.0); BILIRUBIN,TOTAL 1.6 mg/dL (0.1-1.0); CALCIUM, TOTAL 7.9 mg/dL (8.8-10.5); CREATININE 2.37 mg/dL (0.60-1.30); POTASSIUM 4.3 mmol/L (3.5-5.1)
[2024-10-25 11:36] LABS: BASOPHILS % (AUTO) 0.5 % (0.0-2.0); EOSINOPHILS % (AUTO) 3.6 % (1.0-6.0); HEMATOCRIT 25.5 % (41-53); HEMOGLOBIN 7.7 g/dL (13.5-17.5); LYMPHOCYTES # (AUTO) 1.9 K/uL (1.0-4.8); LYMPHOCYTES % (AUTO) 16.8 % (22.0-44.0); MEAN CORPUSCULAR HEMOGLOBIN 24.2 pg (26.0-34.0); MEAN CORPUSCULAR HGB CONC 30.1 G/dL (31.0-37.0); MEAN CORPUSCULAR VOLUME 80 fL (80-100); MONOCYTES # (AUTO) 0.8 K/uL (0.1-1.0); MONOCYTES % (AUTO) 6.7 % (2.0-9.0); NEUTROPHILS # (AUTO) 8.2 K/uL (1.8-7.7); NEUTROPHILS % (AUTO) 72.4 % (40.0-70.0); PLATELET COUNT (AUTO) 476 K/uL (150-450); RED BLOOD CELL COUNT(AUTO) 3.17 MIL/uL (4.50-5.90); RED CELL DISTRIBUTION WIDTH 23.5 % (11.5-14.5); WHITE BLOOD COUNT (AUTO) 11.4 K/uL (4.5-11.0)
[2024-10-25 11:50] VITALS: BP 140/62; PULSE 74; RESP 19; TEMP 98.6; O2SAT 98
[2024-10-25 12:55] LABS: RBC MORPHOLOGY COMMENT ABNORMAL RBC MORPH
[2024-10-25] MEDS: PIPERACILLIN SODIUM/TAZOBACTAM 2.25 GM in DEXTROSE 5%-WATER 50 ML IV SCH (13:38)
[2024-10-25 14:55] LABS: GLUCOMETER DEV NAME(LOC) 5S.2D; GLUCOSE,POINT OF CARE 128 MG/DL (70-110)
[2024-10-25 14:55] LABS: GLUCOMETER DEV NAME(LOC) 5S.2D; GLUCOSE,POINT OF CARE 107 MG/DL (70-110)
[2024-10-25 15:15] LABS: C.DIFF GDH ANTIGEN, Stool Negative (Negative)
[2024-10-25 15:16] LABS: C.DIFF TOXINS A&B, Stool Negative (Negative)
[2024-10-25] MEDS: DEXTROSE 5%-WATER 1,000 ML IV SCH (15:36)
[2024-10-25 16:06] VITALS: BP 123/64; PULSE 80; RESP 19; TEMP 98.8; O2SAT 97
[2024-10-25 18:00] LABS: GLUCOMETER DEV NAME(LOC) 5S.2D; GLUCOSE,POINT OF CARE 132 MG/DL (70-110)
[2024-10-25 20:33] VITALS: BP 112/68; PULSE 89; RESP 20; TEMP 100.8; O2SAT 97
[2024-10-26] VITALS (15 sets, daily range): BP systolic 98–132; BP diastolic 56–76; PULSE 75–93; RESP 16–20; TEMP 97.3–100.6; O2SAT 96–100
[2024-10-26 06:51] LABS: GLUCOMETER DEV NAME(LOC) 5S.2D; GLUCOSE,POINT OF CARE 122 MG/DL (70-110)
[2024-10-26 07:01] LABS: BASOPHILS % (AUTO) 0.3 % (0.0-2.0); EOSINOPHILS % (AUTO) 3.7 % (1.0-6.0); HEMATOCRIT 22.5 % (41-53); LYMPHOCYTES # (AUTO) 0.8 K/uL (1.0-4.8); LYMPHOCYTES % (AUTO) 7.2 % (22.0-44.0); MEAN CORPUSCULAR HEMOGLOBIN 24.4 pg (26.0-34.0); MEAN CORPUSCULAR HGB CONC 30.1 G/dL (31.0-37.0); MEAN CORPUSCULAR VOLUME 81 fL (80-100); MONOCYTES # (AUTO) 0.5 K/uL (0.1-1.0); MONOCYTES % (AUTO) 5.1 % (2.0-9.0); NEUTROPHILS # (AUTO) 8.9 K/uL (1.8-7.7); NEUTROPHILS % (AUTO) 83.7 % (40.0-70.0); PLATELET COUNT (AUTO) 471 K/uL (150-450); RED BLOOD CELL COUNT(AUTO) 2.77 MIL/uL (4.50-5.90); RED CELL DISTRIBUTION WIDTH 23.5 % (11.5-14.5); WHITE BLOOD COUNT (AUTO) 10.6 K/uL (4.5-11.0)
[2024-10-26 07:36] LABS: HEMOGLOBIN 6.8 g/dL (13.5-17.5)
[2024-10-26 08:01] LABS: ALBUMIN 1.1 g/dL (3.4-5.0); BILIRUBIN,TOTAL 1.2 mg/dL (0.1-1.0); CREATININE 2.36 mg/dL (0.60-1.30); POTASSIUM 4.2 mmol/L (3.5-5.1); TOTAL PROTEIN, SERUM 5.4 g/dL (6.4-8.2)
[2024-10-26] MEDS ORDERED: SODIUM CHLORIDE 0.9% 250 ML IV ONE (10:47)
[2024-10-26 11:18] LABS: RBC MORPHOLOGY COMMENT ABNORMAL RBC MORPH
[2024-10-26 11:21] LABS: GLUCOMETER DEV NAME(LOC) 5N.1D; GLUCOSE,POINT OF CARE 108 MG/DL (70-110)
[2024-10-26] MEDS: LINEZOLID 600 MG TABLET GT SCH (13:31)
[2024-10-26 17:45] LABS: GLUCOMETER DEV NAME(LOC) 5N.1D; GLUCOSE,POINT OF CARE 119 MG/DL (70-110)
[2024-10-26 19:46] LABS: GLUCOMETER DEV NAME(LOC) 5N.1D; GLUCOSE,POINT OF CARE 112 MG/DL (70-110)
[2024-10-27] VITALS (23 sets, daily range): BP systolic 70–132; BP diastolic 50–74; PULSE 73–100; RESP 16–22; TEMP 97–100.6; O2SAT 85–100
[2024-10-27 01:16] LABS: GLUCOMETER DEV NAME(LOC) 5N.1D; GLUCOSE,POINT OF CARE 132 MG/DL (70-110)
[2024-10-27 06:51] LABS: GLUCOMETER DEV NAME(LOC) 5N.1D; GLUCOSE,POINT OF CARE 126 MG/DL (70-110)
[2024-10-27 07:02] LABS: BILIRUBIN,TOTAL 0.9 mg/dL (0.1-1.0); CREATININE 2.27 mg/dL (0.60-1.30); MAGNESIUM 2.8 mg/dL (1.80-2.40); PHOSPHORUS 4.6 mg/dL (2.5-4.9); POTASSIUM 3.7 mmol/L (3.5-5.1)
[2024-10-27 07:03] LABS: BASOPHILS % (AUTO) 0.2 % (0.0-2.0); EOSINOPHILS % (AUTO) 3.4 % (1.0-6.0); LYMPHOCYTES # (AUTO) 0.4 K/uL (1.0-4.8); LYMPHOCYTES % (AUTO) 3.9 % (22.0-44.0); MEAN CORPUSCULAR HEMOGLOBIN 25.9 pg (26.0-34.0); MEAN CORPUSCULAR HGB CONC 31.5 G/dL (31.0-37.0); MEAN CORPUSCULAR VOLUME 82 fL (80-100); MONOCYTES # (AUTO) 0.5 K/uL (0.1-1.0); MONOCYTES % (AUTO) 4.9 % (2.0-9.0); NEUTROPHILS # (AUTO) 8.3 K/uL (1.8-7.7); PLATELET COUNT (AUTO) 402 K/uL (150-450); RED BLOOD CELL COUNT(AUTO) 2.67 MIL/uL (4.50-5.90); RED CELL DISTRIBUTION WIDTH 22.2 % (11.5-14.5); WHITE BLOOD COUNT (AUTO) 9.5 K/uL (4.5-11.0)
[2024-10-27 07:39] LABS: HEMOGLOBIN 6.9 g/dL (13.5-17.5); NEUTROPHILS % (AUTO) 87.6 % (40.0-70.0); RBC MORPHOLOGY COMMENT ABNORMAL RBC MORPH
[2024-10-27] MEDS: EPOETIN ALFA 10,000 UNITS/ML VIAL SQ SCH (09:16)
[2024-10-27] MEDS ORDERED: SODIUM CHLORIDE 0.9% 250 ML IV ONE ×2 (12:15→22:05)
[2024-10-27 17:06] LABS: GLUCOMETER DEV NAME(LOC) 5N.1D; GLUCOSE,POINT OF CARE 172 MG/DL (70-110)
[2024-10-27 17:50] LABS: ALLEN TEST, BLOOD GAS Positive; SITE, BLOOD GAS LFT RADIAL; SOURCE, BLOOD GAS ARTERIAL
[2024-10-27 17:51] LABS: ABG BASE EXCESS -9.8 mmol/L (-2.0-3.0); ABG PCO2 39 mmHg (32.0-48.0); ABG PH 7.261 (7.350-7.450); PO2, ARTERIAL BG 72.8 mmHg (83.0-108.0); TEMPERATURE, FAHRENHEIT, BG 98.6 FAHREN (96.0-98.6)
[2024-10-27 17:53] LABS: O2 DEVICE,BLOOD GAS NRB (ROOM AIR)
[2024-10-27 17:55] LABS: ABG CARBOXYHEMOGLOBIN 0.5 % (0.5-1.5); ABG METHEMOGLOBIN 1.2 % (0.0-1.5); ABG OXYGEN CONTENT 11.6 mL/dL (15.0-23.0); ABG OXYHEMOGLOBIN 90.8 % (94.0-98.0)
[2024-10-27 17:56] LABS: ABG OXYGEN SATURATION 92.4 % (94.0-98.0)
[2024-10-27 20:37] LABS: ABG PCO2 35 mmHg (32.0-48.0); ABG PH 7.287 (7.350-7.450); ALLEN TEST, BLOOD GAS Positive; SITE, BLOOD GAS LFT RADIAL; SOURCE, BLOOD GAS ARTERIAL
[2024-10-27 20:38] LABS: PO2, ARTERIAL BG 66.1 mmHg (83.0-108.0)
[2024-10-27 20:40] LABS: ABG BASE EXCESS -10.2 mmol/L (-2.0-3.0); ABG HCO3 16.8 mmol/L (21.0-28.0); ABG TOTAL HEMOGLOBIN 10.4 G/dL (13.5-17.5)
[2024-10-27 20:41] LABS: ABG CARBOXYHEMOGLOBIN 0.3 % (0.5-1.5); ABG METHEMOGLOBIN 0.1 % (0.0-1.5); ABG OXYGEN CONTENT 13.5 mL/dL (15.0-23.0); ABG OXYGEN SATURATION 92.3 % (94.0-98.0); ABG OXYHEMOGLOBIN 91.9 % (94.0-98.0); O2 DEVICE,BLOOD GAS VENTILATOR (ROOM AIR); VT, ABG 450 ml
[2024-10-27 20:42] LABS: PEEP,BG 5 cm H2O; SPONTANEOUS VT, BG 465 ml
[2024-10-27 21:05] LABS: GLUCOMETER DEV NAME(LOC) 5N.1D; GLUCOSE,POINT OF CARE 175 MG/DL (70-110)
[2024-10-27] MEDS ORDERED: PROPOFOL 1000 MG/ISO-OSM 100 ML IV PRN (21:15)
[2024-10-27 22:51] LABS: GLUCOMETER DEV NAME(LOC) ICU.S6; GLUCOSE,POINT OF CARE 106 MG/DL (70-110)
[2024-10-28] VITALS (19 sets, daily range): BP systolic 83–134; BP diastolic 45–75; PULSE 62–91; RESP 14–27; TEMP 97.4–99.8; O2SAT 93–100
[2024-10-28] MEDS: PHENYLEPHRINE 200 MG/D5%-WATER 250 ML IV PRN (00:38)
[2024-10-28] MEDS: FentaNYL CIT 1000MCG/0.9% NACL 100 ML IV PRN (00:39)
[2024-10-28] MEDS: IPRATROPIUM BROMIDE 0.5 MG/2.5 ML NEB SOLUTION NEB SCH (01:08)
[2024-10-28] MEDS: ACETYLCYSTEINE 10% 100 MG/ML 4 ML NEB SOLUTION NEB SCH (01:08)
[2024-10-28] MEDS: ALBUTEROL SULFATE 2.5 MG/0.5 ML NEB SOLUTION NEB PRN (01:08)
[2024-10-28 01:10] LABS: GLUCOMETER DEV NAME(LOC) ICU.S6; GLUCOSE,POINT OF CARE 131 MG/DL (70-110)
[2024-10-28 05:05] LABS: GLUCOMETER DEV NAME(LOC) ICU.S6; GLUCOSE,POINT OF CARE 98 MG/DL (70-110)
[2024-10-28 05:37] LABS: BASOPHILS % (AUTO) 0.1 % (0.0-2.0); EOSINOPHILS % (AUTO) 0.9 % (1.0-6.0); HEMATOCRIT 29.1 % (41-53); HEMOGLOBIN 9.2 g/dL (13.5-17.5); LYMPHOCYTES # (AUTO) 0.3 K/uL (1.0-4.8); LYMPHOCYTES % (AUTO) 2.2 % (22.0-44.0); MEAN CORPUSCULAR HEMOGLOBIN 26.4 pg (26.0-34.0); MEAN CORPUSCULAR HGB CONC 31.7 G/dL (31.0-37.0); MEAN CORPUSCULAR VOLUME 83 fL (80-100); MONOCYTES # (AUTO) 0.6 K/uL (0.1-1.0); MONOCYTES % (AUTO) 4.4 % (2.0-9.0); NEUTROPHILS # (AUTO) 12.9 K/uL (1.8-7.7); PLATELET COUNT (AUTO) 427 K/uL (150-450); RED BLOOD CELL COUNT(AUTO) 3.49 MIL/uL (4.50-5.90); WHITE BLOOD COUNT (AUTO) 13.9 K/uL (4.5-11.0)
[2024-10-28 05:39] LABS: NEUTROPHILS % (AUTO) 92.4 % (40.0-70.0)
[2024-10-28 05:51] LABS: BILIRUBIN,TOTAL 1.2 mg/dL (0.1-1.0); CALCIUM, TOTAL 8.3 mg/dL (8.8-10.5); CREATININE 2.48 mg/dL (0.60-1.30); MAGNESIUM 2.9 mg/dL (1.80-2.40); PHOSPHORUS 5.6 mg/dL (2.5-4.9); POTASSIUM 3.9 mmol/L (3.5-5.1); TOTAL PROTEIN, SERUM 5.3 g/dL (6.4-8.2)
[2024-10-28 06:04] LABS: RBC MORPHOLOGY COMMENT ABNORMAL RBC MORPH
[2024-10-28] MEDS ORDERED: ACETAMINOPHEN 650 MG/20.3 ML SOLUTION UDCUP PEG PRN (10:15)
[2024-10-28] MEDS: CITRIC ACID/SODIUM CITRATE 30 ML SOLUTION UDCUP GT SCH (11:10)
[2024-10-28 12:41] LABS: GLUCOMETER DEV NAME(LOC) ICUN.5; GLUCOSE,POINT OF CARE 118 MG/DL (70-110)
[2024-10-28] MEDS ORDERED: DEXTROSE 50%-WATER 25 GM/50 ML SYRINGE IVP PRN ×2 (13:00)
[2024-10-28 18:05] LABS: GLUCOMETER DEV NAME(LOC) ICU.S6; GLUCOSE,POINT OF CARE 119 MG/DL (70-110)
[2024-10-29] VITALS (19 sets, daily range): BP systolic 107–136; BP diastolic 61–77; PULSE 62–99; RESP 20–26; TEMP 97.1–98.9; O2SAT 97–100
[2024-10-29] LABS: GLUCOMETER DEV NAME(LOC) ICU.S6; GLUCOSE,POINT OF CARE 120 MG/DL (70-110)
[2024-10-29 05:57] LABS: BASOPHILS % (AUTO) 0.1 % (0.0-2.0); EOSINOPHILS % (AUTO) 2.1 % (1.0-6.0); HEMATOCRIT 32.1 % (41-53); LYMPHOCYTES # (AUTO) 0.5 K/uL (1.0-4.8); LYMPHOCYTES % (AUTO) 2.8 % (22.0-44.0); MEAN CORPUSCULAR HEMOGLOBIN 26.5 pg (26.0-34.0); MEAN CORPUSCULAR VOLUME 85 fL (80-100); MONOCYTES # (AUTO) 0.5 K/uL (0.1-1.0); MONOCYTES % (AUTO) 3.3 % (2.0-9.0); NEUTROPHILS # (AUTO) 14.8 K/uL (1.8-7.7); PLATELET COUNT (AUTO) 461 K/uL (150-450); RED BLOOD CELL COUNT(AUTO) 3.76 MIL/uL (4.50-5.90); RED CELL DISTRIBUTION WIDTH 22.2 % (11.5-14.5); WHITE BLOOD COUNT (AUTO) 16.1 K/uL (4.5-11.0)
[2024-10-29 06:02] LABS: NEUTROPHILS % (AUTO) 91.7 % (40.0-70.0)
[2024-10-29 06:11] LABS: CALCIUM, TOTAL 8.2 mg/dL (8.8-10.5); CREATININE 2.58 mg/dL (0.60-1.30); MAGNESIUM 2.8 mg/dL (1.80-2.40); PHOSPHORUS 6.2 mg/dL (2.5-4.9); POTASSIUM 3.9 mmol/L (3.5-5.1); TOTAL PROTEIN, SERUM 5.6 g/dL (6.4-8.2)
[2024-10-29 07:31] LABS: GLUCOMETER DEV NAME(LOC) ICUN.5; GLUCOSE,POINT OF CARE 106 MG/DL (70-110)
[2024-10-29 08:15] LABS: RBC MORPHOLOGY COMMENT ABNORMAL RBC MORPH
[2024-10-29] MEDS: MIDODRINE HCL 5 MG TABLET PO SCH (15:10)
[2024-10-29] MEDS ORDERED: SODIUM CHLORIDE 0.9% 250 ML IV ONE (18:50)
[2024-10-30] VITALS (25 sets, daily range): BP systolic 97–157; BP diastolic 52–84; PULSE 68–103; RESP 17–27; TEMP 97.5–98.5; O2SAT 99–100
[2024-10-30 05:35] LABS: EOSINOPHILS % (AUTO) 1.5 % (1.0-6.0); HEMATOCRIT 27.6 % (41-53); HEMOGLOBIN 8.8 g/dL (13.5-17.5); LYMPHOCYTES # (AUTO) 0.3 K/uL (1.0-4.8); LYMPHOCYTES % (AUTO) 1.4 % (22.0-44.0); MEAN CORPUSCULAR HEMOGLOBIN 27.1 pg (26.0-34.0); MEAN CORPUSCULAR VOLUME 85 fL (80-100); MONOCYTES # (AUTO) 0.5 K/uL (0.1-1.0); NEUTROPHILS # (AUTO) 17.4 K/uL (1.8-7.7); PLATELET COUNT (AUTO) 353 K/uL (150-450); RED BLOOD CELL COUNT(AUTO) 3.26 MIL/uL (4.50-5.90); WHITE BLOOD COUNT (AUTO) 18.5 K/uL (4.5-11.0)
[2024-10-30 05:40] LABS: NEUTROPHILS % (AUTO) 94.1 % (40.0-70.0)
[2024-10-30 05:47] LABS: BILIRUBIN,TOTAL 0.9 mg/dL (0.1-1.0); CREATININE 2.48 mg/dL (0.60-1.30); PHOSPHORUS 5.5 mg/dL (2.5-4.9); POTASSIUM 3.3 mmol/L (3.5-5.1); TOTAL PROTEIN, SERUM 5.2 g/dL (6.4-8.2)
[2024-10-30 10:58] LABS: ABG PH 7.497 (7.350-7.450); ALLEN TEST, BLOOD GAS Positive; SITE, BLOOD GAS LFT RADIAL; SOURCE, BLOOD GAS ARTERIAL; TEMPERATURE, FAHRENHEIT, BG 98.2 FAHREN (96.0-98.6)
[2024-10-30 10:59] LABS: ABG BASE EXCESS -9.1 mmol/L (-2.0-3.0); ABG CARBOXYHEMOGLOBIN 0.3 % (0.5-1.5); ABG HCO3 18.4 mmol/L (21.0-28.0); ABG METHEMOGLOBIN 0.1 % (0.0-1.5); ABG OXYGEN CONTENT 13.9 mL/dL (15.0-23.0); ABG OXYGEN SATURATION 97.9 % (94.0-98.0); ABG OXYHEMOGLOBIN 97.5 % (94.0-98.0); ABG PCO2 19 mmHg (32.0-48.0); PO2, ARTERIAL BG 103.2 mmHg (83.0-108.0)
[2024-10-30 11:00] LABS: ABG A-A DIFF O2 124.9 mmHg (10-20.0); O2 DEVICE,BLOOD GAS VENTILATOR (ROOM AIR); VENT MODE, BG SPONTANEOUS (ROOM AIR)
[2024-10-30 11:01] LABS: PEEP,BG 0 cm H2O; VT, ABG 450 ml
[2024-10-30 11:02] LABS: PRESSURE SUPPORT, BG 8 cm H2O; SPONTANEOUS VT, BG 861 ml
[2024-10-30] MEDS: POTASSIUM CHLORIDE 10% 40 MEQ/30 ML LIQUID UDCUP PEG ONE (16:11)
[2024-10-31] VITALS (22 sets, daily range): BP systolic 99–113; BP diastolic 56–68; PULSE 67–102; RESP 15–26; TEMP 98.3–99; O2SAT 98–100
[2024-10-31 05:22] LABS: BASOPHILS % (AUTO) 0.1 % (0.0-2.0); EOSINOPHILS % (AUTO) 2.4 % (1.0-6.0); HEMATOCRIT 28.3 % (41-53); HEMOGLOBIN 8.8 g/dL (13.5-17.5); LYMPHOCYTES # (AUTO) 0.3 K/uL (1.0-4.8); LYMPHOCYTES % (AUTO) 1.5 % (22.0-44.0); MEAN CORPUSCULAR HEMOGLOBIN 26.3 pg (26.0-34.0); MEAN CORPUSCULAR HGB CONC 31.1 G/dL (31.0-37.0); MEAN CORPUSCULAR VOLUME 85 fL (80-100); MONOCYTES # (AUTO) 0.5 K/uL (0.1-1.0); NEUTROPHILS # (AUTO) 16.6 K/uL (1.8-7.7); PLATELET COUNT (AUTO) 313 K/uL (150-450); RED BLOOD CELL COUNT(AUTO) 3.34 MIL/uL (4.50-5.90); RED CELL DISTRIBUTION WIDTH 22.2 % (11.5-14.5); WHITE BLOOD COUNT (AUTO) 17.9 K/uL (4.5-11.0)
[2024-10-31 05:35] LABS: ALBUMIN 0.8 g/dL (3.4-5.0); BILIRUBIN,TOTAL 0.7 mg/dL (0.1-1.0); CALCIUM, TOTAL 8.1 mg/dL (8.8-10.5); CREATININE 2.46 mg/dL (0.60-1.30); POTASSIUM 3.4 mmol/L (3.5-5.1)
[2024-10-31 06:13] LABS: PLATELET MORPHOLOGY COMMENT LARGE PLTS PRESENT; RBC MORPHOLOGY COMMENT ABNORMAL RBC MORPH
[2024-10-31 07:37] LABS: MAGNESIUM 2.5 mg/dL (1.80-2.40); PHOSPHORUS 5.4 mg/dL (2.5-4.9)
[2024-10-31] MEDS ORDERED: SODIUM CHLORIDE 0.9% 500 ML IV ONE (11:20)
[2024-10-31 12:52] LABS: ABG A-A DIFF O2 130.4 mmHg (10-20.0); ABG BASE EXCESS -10.2 mmol/L (-2.0-3.0); ABG CARBOXYHEMOGLOBIN 0.1 % (0.5-1.5); ABG HCO3 17.2 mmol/L (21.0-28.0); ABG METHEMOGLOBIN 0.3 % (0.0-1.5); ABG OXYGEN CONTENT 12.4 mL/dL (15.0-23.0); ABG OXYGEN SATURATION 97.1 % (94.0-98.0); ABG OXYHEMOGLOBIN 96.7 % (94.0-98.0); ABG PCO2 23 mmHg (32.0-48.0); ABG PH 7.415 (7.350-7.450); ALLEN TEST, BLOOD GAS Positive; PO2, ARTERIAL BG 92.5 mmHg (83.0-108.0); SITE, BLOOD GAS LFT RADIAL; SOURCE, BLOOD GAS ARTERIAL; TEMPERATURE, FAHRENHEIT, BG 98.6 FAHREN (96.0-98.6)
[2024-10-31 12:53] LABS: CPAP, BG 0 cm H2O; O2 DEVICE,BLOOD GAS VENTILATOR (ROOM AIR); PRESSURE SUPPORT, BG 8 cm H2O; SPONTANEOUS VT, BG 750 ml; VENT MODE, BG CPAP (ROOM AIR)
[2024-10-31 14:00] LABS: GLUCOMETER DEV NAME(LOC) ICU.S6; GLUCOSE,POINT OF CARE 119 MG/DL (70-110)
[2024-10-31] MEDS: POTASSIUM CHL 10 MEQ/WATER 50 ML IV ONE (18:55)
[2024-11-01] VITALS (20 sets, daily range): BP systolic 101–125; BP diastolic 58–69; PULSE 65–80; RESP 14–25; TEMP 97.3–99.3; O2SAT 98–100
[2024-11-01 04:01] LABS: GLUCOMETER DEV NAME(LOC) ICU.S6; GLUCOSE,POINT OF CARE 90 MG/DL (70-110)
[2024-11-01 05:53] LABS: EOSINOPHILS % (AUTO) 2.8 % (1.0-6.0); HEMATOCRIT 28.4 % (41-53); HEMOGLOBIN 8.9 g/dL (13.5-17.5); LYMPHOCYTES # (AUTO) 0.3 K/uL (1.0-4.8); MEAN CORPUSCULAR HEMOGLOBIN 27.2 pg (26.0-34.0); MEAN CORPUSCULAR HGB CONC 31.5 G/dL (31.0-37.0); MEAN CORPUSCULAR VOLUME 87 fL (80-100); MONOCYTES # (AUTO) 0.4 K/uL (0.1-1.0); MONOCYTES % (AUTO) 2.7 % (2.0-9.0); NEUTROPHILS # (AUTO) 12.6 K/uL (1.8-7.7); RED BLOOD CELL COUNT(AUTO) 3.28 MIL/uL (4.50-5.90); RED CELL DISTRIBUTION WIDTH 22.5 % (11.5-14.5); WHITE BLOOD COUNT (AUTO) 13.7 K/uL (4.5-11.0)
[2024-11-01 06:02] LABS: NEUTROPHILS % (AUTO) 91.5 % (40.0-70.0)
[2024-11-01 06:09] LABS: ALBUMIN 0.8 g/dL (3.4-5.0); BILIRUBIN,TOTAL 0.7 mg/dL (0.1-1.0); CALCIUM, TOTAL 8.3 mg/dL (8.8-10.5); CREATININE 2.46 mg/dL (0.60-1.30); POTASSIUM 3.5 mmol/L (3.5-5.1); TOTAL PROTEIN, SERUM 5.1 g/dL (6.4-8.2)
[2024-11-01 06:18] LABS: PLATELET COUNT (AUTO) 251 K/uL (150-450)
[2024-11-01 06:19] LABS: PLATELET MORPHOLOGY COMMENT LARGE PLTS PRESENT; RBC MORPHOLOGY COMMENT ABNORMAL RBC MORPH
[2024-11-01] MEDS: MULTIVITAMINS WITH MINERALS, THERAPEUTIC 15 ML UDCUP PEG SCH (07:54)
[2024-11-01] MEDS: AMINO ACIDS/PROTEIN HYDROLYS 30 ML LIQUID TUBE PEG SCH (16:20)
[2024-11-01 17:51] LABS: GLUCOMETER DEV NAME(LOC) ICU.S6; GLUCOSE,POINT OF CARE 98 MG/DL (70-110)
[2024-11-02] VITALS (21 sets, daily range): BP systolic 101–115; BP diastolic 58–75; PULSE 70–89; RESP 13–24; TEMP 98.7–100.2; O2SAT 71–100
[2024-11-02] MEDS ORDERED: SODIUM CHLORIDE 0.9% 250 ML IV ONE (00:36)
[2024-11-02 05:44] LABS: BASOPHILS % (AUTO) 0.4 % (0.0-2.0); EOSINOPHILS % (AUTO) 4.3 % (1.0-6.0); HEMATOCRIT 25.8 % (41-53); HEMOGLOBIN 8.1 g/dL (13.5-17.5); LYMPHOCYTES # (AUTO) 0.4 K/uL (1.0-4.8); LYMPHOCYTES % (AUTO) 3.4 % (22.0-44.0); MEAN CORPUSCULAR HEMOGLOBIN 26.7 pg (26.0-34.0); MEAN CORPUSCULAR HGB CONC 31.5 G/dL (31.0-37.0); MEAN CORPUSCULAR VOLUME 85 fL (80-100); MONOCYTES # (AUTO) 0.7 K/uL (0.1-1.0); MONOCYTES % (AUTO) 6.1 % (2.0-9.0); NEUTROPHILS # (AUTO) 9.7 K/uL (1.8-7.7); PLATELET COUNT (AUTO) 253 K/uL (150-450); RED BLOOD CELL COUNT(AUTO) 3.04 MIL/uL (4.50-5.90); RED CELL DISTRIBUTION WIDTH 22.5 % (11.5-14.5); WHITE BLOOD COUNT (AUTO) 11.3 K/uL (4.5-11.0)
[2024-11-02 05:58] LABS: ALBUMIN 0.9 g/dL (3.4-5.0); BILIRUBIN,TOTAL 0.6 mg/dL (0.1-1.0); CREATININE 2.36 mg/dL (0.60-1.30); POTASSIUM 3.3 mmol/L (3.5-5.1); TOTAL PROTEIN, SERUM 4.9 g/dL (6.4-8.2)
[2024-11-02 05:59] LABS: NEUTROPHILS % (AUTO) 85.8 % (40.0-70.0)
[2024-11-02] MEDS: POTASSIUM CHLORIDE 10% 40 MEQ/30 ML LIQUID UDCUP PEG ONE (10:13)
[2024-11-03] VITALS (11 sets, daily range): BP systolic 125–150; BP diastolic 64–78; PULSE 83–110; RESP 14–23; TEMP 97.5–99.2; O2SAT 95–100
[2024-11-03] MEDS: MORPHINE SULFATE 2 MG/ML SYRINGE IVP PRN (04:50)
[2024-11-03] MEDS: SCOPOLAMINE HYDROBROMIDE 1 MG/72 HOUR PATCH TD SCH (09:16)
[2024-11-03] MEDS: LORazepam 2 MG/ML VIAL IVP PRN (09:19)
[2024-11-04] VITALS (12 sets, daily range): BP systolic 123–146; BP diastolic 69–85; PULSE 90–102; RESP 2–20; TEMP 98.6–99.6; O2SAT 95–100
[2024-11-05] VITALS (13 sets, daily range): BP systolic 83–136; BP diastolic 50–78; PULSE 72–104; RESP 8–24; TEMP 95.9–99.8; O2SAT 87–100
[2024-11-05] MEDS: MORPHINE SULFATE 2 MG/ML SYRINGE IVP ONE (16:51)
[2024-11-06] VITALS (11 sets, daily range): BP systolic 62–81; BP diastolic 36–46; PULSE 75–84; RESP 5–12; TEMP 95.9–97; O2SAT 97–100
[2024-11-06] MEDS: MORPHINE SULFATE 2 MG/ML SYRINGE IVP PRN (09:49)
== END 2024-11-07 02:30 | DRG 870 ==
LOC: EMS 17:21 → EDH 22:10 → ICU 23:30 → 5S 09-24 18:20 → 5N 09-28 21:28 → ICU 10-27 19:30 → 5N 11-03 10:08 → 6N 11-04 11:46
PROVIDERS: ADMIT Hospitalist; ATTEND Internal Medicine
PROC: 30233N1 Transfusion of Nonautologous Red Blood Cells into Peripheral Vein, Percutaneous Approach (ICD-10-PCS; 2024-09-20)
PROC: 0DH63UZ Insertion of Feeding Device into Stomach, Percutaneous Approach (ICD-10-PCS; principal; 2024-09-28)
PROC: BD12YZZ Fluoroscopy of Stomach using Other Contrast (ICD-10-PCS; 2024-09-28)
PROC: 0BBC3ZX Excision of Right Upper Lung Lobe, Percutaneous Approach, Diagnostic (ICD-10-PCS; 2024-10-06)
PROC: 05H933Z Insertion of Infusion Device into Right Brachial Vein, Percutaneous Approach (ICD-10-PCS; 2024-10-06)
PROC: B54MZZA Ultrasonography of Right Upper Extremity Veins, Guidance (ICD-10-PCS; 2024-10-06)
PROC: 0T2BX0Z Change Drainage Device in Bladder, External Approach (ICD-10-PCS; 2024-10-11)
PROC: 05HC33Z Insertion of Infusion Device into Left Basilic Vein, Percutaneous Approach (ICD-10-PCS; 2024-10-12)
PROC: B54NZZA Ultrasonography of Left Upper Extremity Veins, Guidance (ICD-10-PCS; 2024-10-12)
PROC: 05HB33Z Insertion of Infusion Device into Right Basilic Vein, Percutaneous Approach (ICD-10-PCS; 2024-10-22)
PROC: B54MZZA Ultrasonography of Right Upper Extremity Veins, Guidance (ICD-10-PCS; 2024-10-22)
PROC: 5A1955Z Respiratory Ventilation, Greater than 96 Consecutive Hours (ICD-10-PCS; 2024-10-27)
PROC: 0BH17EZ Insertion of Endotracheal Airway into Trachea, Via Natural or Artificial Opening (ICD-10-PCS; 2024-10-27)
PROC: 5A09357 Assistance with Respiratory Ventilation, Less than 24 Consecutive Hours, Continuous Positive Airway Pressure (ICD-10-PCS; 2024-10-27)
DX: A41.9 Sepsis, unspecified organism (principal); E43 Unspecified severe protein-calorie malnutrition; I63.511 Cerebral infarction due to unspecified occlusion or stenosis of right middle cerebral artery; G93.41 Metabolic encephalopathy; J18.9 Pneumonia, unspecified organism; R53.2 Functional quadriplegia; G93.6 Cerebral edema; L89.154 Pressure ulcer of sacral region, stage 4; J96.01 Acute respiratory failure with hypoxia; K83.1 Obstruction of bile duct; I13.0 Hypertensive heart and chronic kidney disease with heart failure and stage 1 through stage 4 chronic kidney disease, or unspecified chronic kidney disease; G81.94 Hemiplegia, unspecified affecting left nondominant side; E87.1 Hypo-osmolality and hyponatremia; R47.01 Aphasia; L02.31 Cutaneous abscess of buttock; T83.510A Infection and inflammatory reaction due to cystostomy catheter, initial encounter; T83.030A Leakage of cystostomy catheter, initial encounter; Z16.12 Extended spectrum beta lactamase (ESBL) resistance; N13.6 Pyonephrosis; M60.08 Infective myositis, other site; E87.0 Hyperosmolality and hypernatremia; I47.20 Ventricular tachycardia, unspecified; E87.20 Acidosis, unspecified; K92.2 Gastrointestinal hemorrhage, unspecified; N17.9 Acute kidney failure, unspecified; D62 Acute posthemorrhagic anemia; M62.82 Rhabdomyolysis; Z66 Do not resuscitate; R65.20 Severe sepsis without septic shock; E78.5 Hyperlipidemia, unspecified; E86.0 Dehydration; E87.6 Hypokalemia; I50.9 Heart failure, unspecified; N18.9 Chronic kidney disease, unspecified; E83.39 Other disorders of phosphorus metabolism; C61 Malignant neoplasm of prostate; R13.10 Dysphagia, unspecified; B96.20 Unspecified Escherichia coli [E. coli] as the cause of diseases classified elsewhere; J98.4 Other disorders of lung; K21.9 Gastro-esophageal reflux disease without esophagitis; R91.8 Other nonspecific abnormal finding of lung field; N32.89 Other specified disorders of bladder; N13.9 Obstructive and reflux uropathy, unspecified; Y73.8 Miscellaneous gastroenterology and urology devices associated with adverse incidents, not elsewhere classified; Y84.6 Urinary catheterization as the cause of abnormal reaction of the patient, or of later complication, without mention of misadventure at the time of the procedure; Z20.1 Contact with and (suspected) exposure to tuberculosis; F03.90 Unspecified dementia, unspecified severity, without behavioral disturbance, psychotic disturbance, mood disturbance, and anxiety; D63.8 Anemia in other chronic diseases classified elsewhere; J84.10 Pulmonary fibrosis, unspecified; K76.89 Other specified diseases of liver; T50.995A Adverse effect of other drugs, medicaments and biological substances, initial encounter; Y92.238 Other place in hospital as the place of occurrence of the external cause; Y92.89 Other specified places as the place of occurrence of the external cause; Z85.46 Personal history of malignant neoplasm of prostate; Z74.01 Bed confinement status; Z78.9 Other specified health status; Z92.3 Personal history of irradiation; Z79.82 Long term (current) use of aspirin; Z51.5 Encounter for palliative care; Z87.440 Personal history of urinary (tract) infections; Z68.23 Body mass index [BMI] 23.0-23.9, adult; Z20.822 Contact with and (suspected) exposure to COVID-19
CPT/HCPCS: 0241U; 32408; 36245; 36569; 49440; 70450; 70551; 71045; 71250; 71260; 72126; 72129; 72132; 72193; 74160; 74176; 76000; 76700; 76770; 76937; 77002; 78226; 80048; 80053; 80061; 81001; 81002; 82271; 82550; 82570; 82805; 82962; 83516; 83605; 83735; 83880; 84100; 84132; 84145; 84300; 84484; 85014; 85018; 85025; 85610; 85730; 86225; 86256; 86403; 86480; 86738; 86850; 86900; 86901; 86923; 87015; 87040; 87070; 87077; 87081; 87086; 87106; 87186; 87205; 87206; 87305; 87324; 87385; 87389; 87449; 87481; 87556; 88305; 92526; 92610; 93005; 93306; 93308; 93880; 93970; 94002; 94003; 94640; 94660; 94667; 94668; 94760; 94799; 97110; 97112; 97163; 97167; 97530; 99242; 99291; A9537; G0481; J0131; J0290; J0637; J0696; J0878; J0885; J1200; J1450; J1610; J2060; J2185; J2250; J2270; J2370; J2470; J2543; J3010; J3480; J3490; J7030; J7040; J7042; J7050; J7060; P9016; P9046; Q9967; 36415-L1; 36415-TC; G0480; J7613; X7700